=== PATIENT | male | born 1960 | race Hispanic/Latino ===

== ENCOUNTER 2016-03-10 15:13 | Inpatient (IN) | payer MEDICAID ==
[2016-03-10] MEDS ORDERED: ZOFRAN IV ONE (16:58)
[2016-03-10] MEDS ORDERED: MORPHINE IV ONE (16:58)
[2016-03-10] MEDS ORDERED: NITRO-BID 2% TP ONE (16:58)
--- NOTE | 2016-03-10 17:09 | Emergency Department Report ---
HPI - General Chief Complaint: Chest Pain Time Seen by Provider: 03/10/16 16:52 - HPI HPI: EMS triage/hallway The patient is a 55-year-old male presenting with a chief complaint of chest pain. The patient states his symptoms began last night with dizziness chest pain and diaphoresis. The patient states last night while walking he lost consciousness. This morning at 09:30 0 taken his dog for walks again began to feel dizziness palpitations and chest pain. Patient states it feels as though someone is standing on his chest. Patient currently gives his pain a score of 9 /10. The patient states he last received a cardiac catheterization last year and was told he had a small blockage but nothing that needed intervention Location: Chest Duration: Intermittent since last night Quality: Like someone standing on his chest Severity:9/10 Modifying factors: [see above] Context: [see above] Mode of transportation: EMS ED Past Medical Hx - Past Medical History Previous Medical History?: Yes Hx Hypertension: Yes Hx CVA: Yes (left sided weakness) Hx Heart Attack/AMI: Yes (x3 1999) Hx Congestive Heart Failure: Yes Hx Diabetes: Yes Hx Arthritis: Yes Hx Seizures: Yes Hx Asthma: Yes Additional medical history: triple bypass - Surgical History Past Surgical History?: Yes Hx Open Heart Surgery: Yes (triple byoass) Additional Surgical History: NECK FUSION with titanium; tonsilectomy. States chronic cataract right eye - Family History Family history: no significant - Social History Smoking Status: Former Smoker (none 18 years) Substance Use Type: None (denies illicit drug use) - Medications Home Medications: Home Medications Medication Instructions Recorded Confirmed Last Taken Type Insulin Glargine,Hum.rec.anlog 50 units SQ QHS 10/31/13 09/07/15 09/06/15 History [Lantus] Aspirin [Aspirin BABY CHEW TAB] 81 mg PO DAILY #30 tab.chew 07/07/15 09/07/15 Unknown Rx Cephalexin [Keflex] 500 mg PO Q6H #30 capsule 09/12/15 Unknown Rx Insulin Lispro Prot/Lispro 15 unit SQ TID #60 units 09/12/15 Unknown Rx [HumaLOG Mix 75/25 Vial] Metoprolol [Lopressor TAB] 25 mg PO BID #60 tablet 09/12/15 Unknown Rx Metoprolol [Lopressor TAB] 25 mg PO BID #60 tablet 09/12/15 Unknown Rx Moxifloxacin 0.5% [Vigamox] 1 drops OU Q8HR #1 bottle 09/12/15 Unknown Rx Pregabalin [Lyrica] 100 mg PO BID #30 capsule 09/12/15 Unknown Rx levETIRAcetam [Keppra TAB] 500 mg PO BID #60 tablet 09/12/15 Unknown Rx ED Review of Systems ROS: Stated complaint: CHEST PAIN Other details as noted in HPI Comment: All other systems reviewed and negative Constitutional: denies: chills, fever Eyes: denies: eye pain, eye discharge, vision change ENT: denies: ear pain, throat pain Respiratory: shortness of breath Cardiovascular: chest pain, palpitations Endocrine: no symptoms reported Gastrointestinal: denies: abdominal pain, nausea, diarrhea Genitourinary: denies: urgency, dysuria Musculoskeletal: denies: back pain, joint swelling, arthralgia Skin: denies: rash, lesions Neurological: other (syncope). denies: headache, weakness, paresthesias Psychiatric: denies: anxiety, depression Hematological/Lymphatic: denies: easy bleeding, easy bruising Physical Exam - Physical Exam Vital Signs: Vital Signs 03/10/16 16:13 Temperature 98.2 F Pulse Rate 80 Blood Pressure 190/91 O2 Sat by Pulse 96 Oximetry Physical Exam: GENERAL: The patient is well-developed well-nourished male lying on stretcher appearing to be in moderate discomfort. [] HEENT: Normocephalic. Atraumatic. Extraocular motions are intact. Patient has moist mucous membranes. Right sided ptosis (chronic per patient) NECK: Supple. Trachea midline CHEST/LUNGS: Clear to auscultation. There is no respiratory distress noted. HEART/CARDIOVASCULAR: Regular. There is no tachycardia. There is no gallop rub or murmur. ABDOMEN: Abdomen is soft, nontender. Patient has normal bowel sounds. There is no abdominal distention. SKIN: There is no rash. There is no edema. There is no diaphoresis. NEURO: The patient is awake, alert, and oriented. The patient is cooperative. The patient has normal speech MUSCULOSKELETAL: There is no evidence of acute injury. ED Course Vital Signs 03/10/16 16:13 Temperature 98.2 F Pulse Rate 80 Blood Pressure 190/91 O2 Sat by Pulse 96 Oximetry ED Medical Decision Making - Lab Data Result diagrams: 03/10/16 17:01 03/10/16 17:01 Laboratory Tests 03/10/16 03/10/16 03/10/16 17:01 17:01 17:01 WBC 7.2 RBC 5.36 H Hgb 16.4 H Hct 48.4 H MCV 90 MCH 31 MCHC 34 RDW 13.3 Plt Count 190 Lymph % (Auto) 26.3 [place] % (Auto) 6.1 Eos % (Auto) 2.3 Baso % (Auto) 0.7 Lymph # 1.9 [place] # 0.4 Eos # 0.2 Baso # 0.0 Seg Neutrophils % 64.6 Seg Neutrophils # 4.6 PT 12.2 INR 0.91 APTT 26.0 Sodium 134 L Potassium 4.4 Chloride 95.3 L Carbon Dioxide 27 Anion Gap 16 BUN 15 Creatinine 0.8 Estimated GFR > 60 BUN/Creatinine Ratio 18.75 Glucose 360 H Calcium 8.9 Troponin T < 0.010 - EKG Data -: EKG Interpreted by Me EKG shows normal: sinus rhythm Rate: normal - EKG Data When compared to previous EKG there are: previous EKG unavailable - Radiology Data Radiology results: image reviewed (chest x-ray) interpreted by me: Chest x-ray-no definite focal infiltrates, no pneumothorax. Evidence of previously healed left clavicle fracture - Differential Diagnosis ACS, GERD, pericarditis Critical care attestation.: If time is entered above; I have spent that time in minutes in the direct care of this critically ill patient, excluding procedure time. ED Disposition Clinical Impression: Chest pain Disposition: OP ADMITTED IP TO THIS HOSP Is pt being admited?: Yes Does the pt Need Aspirin: Yes Condition: Fair Instructions: Chest Pain (ED) Time of Disposition: 18:11 (hospitalist notified)
[2016-03-10] MEDS ORDERED: ASPIRIN PO ONE (17:13)
[2016-03-10 17:32] LABS: Anion Gap 16 mmol/L; BUN/Creatinine Ratio 18.75; Blood Urea Nitrogen 15 mg/dL (9-20); Calcium 8.9 mg/dL (8.4-10.2); Carbon Dioxide 27 mmol/L (22-30); Chloride 95.3 mmol/L (98-107); Glucose 360 mg/dL (75-100); Potassium 4.4 mmol/L (3.6-5.0); Sodium 134 mmol/L (137-145)
[2016-03-10 17:35] LABS: Basophils % (Auto) 0.7 % (0.0-1.8); Eosinophils % (Auto) 2.3 % (0.0-4.3); Hematocrit 48.4 % (35.5-45.6); Hemoglobin 16.4 gm/dl (11.8-15.2); Mean Corpuscular HGB Conc 34 % (32-34); Mean Corpuscular Hemoglobin 31 pg (28-32); Mean Corpuscular Volume 90 fl (84-94); Platelet Count 190 K/mm3 (140-440); Red Blood Count 5.36 M/mm3 (3.65-5.03); Red Cell Distribution Width 13.3 % (13.2-15.2); White Blood Count 7.2 K/mm3 (4.5-11.0)
[2016-03-10 17:45] LABS: INR 0.91 (0.87-1.13)
[2016-03-10] MEDS ORDERED: ZOFRAN IV PRN (18:18)
[2016-03-10] MEDS ORDERED: TYLENOL PO PRN (18:18)
[2016-03-10] MEDS ORDERED: DULCOLAX PR PRN (18:18)
[2016-03-10] MEDS ORDERED: MILK OF MAGNESIA PO PRN (18:18)
--- NOTE | 2016-03-10 18:21 | History and Physical Report ---
History of Present Illness Date of examination: 03/10/16 Date of admission: 03/10/13 Chief complaint: Chest pain with Near syncope History of present illness: Patient is a 55-year-old male with history of hypertension and CAD, seizures, CVA, diverticulitis mellitus while fortunately has been noncompliant with his medications although states that he takes his blood sugar he states at home runs around 300s of his blood pressure fluctuates. Presents to the hospital today with complaint of chest pain. He discuss this further with an intensity started the day prior to presentation continues to call recurrent bleed despite what activity he is doing. He denies any exertional components to this. He denies any pleuritic component to this. He states that this is similar to the pain that he's had in the past he has had multiple admissions for the same. He also stated that this morning the pain woke him up at 3 AM and was associated with a sensation of near syncope. He did present to the ER when his bladder the pain was reproducible on palpation of his chest. His blood sugar was noted to be elevated in the 300 range and his blood pressure was systolic 190. ROS Constitutional: No fever, fatigue or weight loss. Skin: No rash. Eyes: No recent vision problems or eye pain. ENT: No congestion, ear pain, or sore throat. Endocrine: No thyroid problems. Cardiovascular: Chest pain Respiratory: No cough, shortness of breath, congestion, or wheezing. Gastrointestinal: No abdominal pain, nausea, vomiting, or diarrhea. Genitourinary: No dysuria. Musculoskeletal: No joint swelling. Neurologic: Reports near syncope, No seizures. Hematologic: No unusual bruising or bleeding. Psychiatric: No psychiatric problems, hallucinations or depression. All other systems reviewed and otherwise negative. Past History Past Medical History: acute [place], CAD, diabetes, seizures Past Surgical History: CABG, Other (spinal surgery) Social history: full code. denies: smoking, alcohol abuse, prescription drug abuse, IV drug use Family history: diabetes, hypertension Medications and Allergies Allergies Allergy/AdvReac Type Severity Reaction Status Date / Time Tetracyclines AdvReac Mild Rash Verified 12/17/12 22:31 Home Medications Medication Instructions Recorded Confirmed Last Taken Type Insulin Glargine,Hum.rec.anlog 50 units SQ QHS 10/31/13 03/10/16 09/06/15 History [Lantus] Aspirin [Aspirin BABY CHEW TAB] 81 mg PO DAILY #30 tab.chew 07/07/15 03/10/16 Unknown Rx Insulin Lispro Prot/Lispro 15 unit SQ TID #60 units 09/12/15 03/10/16 Unknown Rx [HumaLOG Mix 75/25 Vial] Moxifloxacin 0.5% [Vigamox] 1 drops OU Q8HR #1 bottle 09/12/15 03/10/16 Unknown Rx Pregabalin [Lyrica] 100 mg PO BID #30 capsule 09/12/15 03/10/16 Unknown Rx levETIRAcetam [Keppra TAB] 500 mg PO BID #60 tablet 09/12/15 03/10/16 Unknown Rx Clopidogrel Bisulfate [Plavix] 75 mg PO DAILY 03/10/16 03/10/16 Unknown History Lisinopril [Zestril TAB] 20 mg PO DAILY 03/10/16 03/10/16 Unknown History Metoprolol [Lopressor TAB] 50 mg PO BID 03/10/16 03/10/16 Unknown History Exam - Physical Exam Narrative exam: VITAL SIGNS: Reviewed. GENERAL: The patient appeared well nourished and normally developed. Vital signs as documented. HEAD: No signs of head trauma. EYES: Pupils are equal. Extraocular motions intact. EARS: Hearing grossly intact. MOUTH: Oropharynx is normal. NECK: No adenopathy, no JVD. CHEST: Chest with clear breath sounds bilaterally. No wheezes, rales, or rhonchi. CARDIAC: Regular rate and rhythm. S1 and S2, without murmurs, gallops, or rubs. VASCULAR: No Edema. Peripheral pulses normal and equal in all extremities. ABDOMEN: Soft, without detectable tenderness. No sign of distention. No rebound or guarding, and no masses palpated. Bowel Sounds normal. MUSCULOSKELETAL: Good range of motion of all major joints. Extremities without clubbing, cyanosis or edema. NEUROLOGIC EXAM: Alert and oriented x 3. No focal sensory or strength deficits. Speech normal. Follows commands. PSYCHIATRIC: Mood normal. SKIN: Surgical scar across the back of the neck, well-healed, tattoo across the chest. - Constitutional Vitals: Temp Pulse Resp BP Pulse Ox 98.2 F 80 18 190/91 96 03/10/16 16:13 03/10/16 16:13 03/10/16 18:11 03/10/16 16:13 03/10/16 16:13 Results - Labs CBC & Chem 7: 03/11/16 07:15 03/11/16 07:15 Labs: Laboratory Last Values WBC 7.2 K/mm3 (4.5-11.0) 03/10/16 17:01 RBC 5.36 M/mm3 (3.65-5.03) H 03/10/16 17:01 Hgb 16.4 gm/dl (11.8-15.2) H 03/10/16 17:01 Hct 48.4 % (35.5-45.6) H 03/10/16 17:01 MCV 90 fl (84-94) 03/10/16 17:01 MCH 31 pg (28-32) 03/10/16 17:01 MCHC 34 % (32-34) 03/10/16 17:01 RDW 13.3 % (13.2-15.2) 03/10/16 17:01 Plt Count 190 K/mm3 (140-440) 03/10/16 17:01 Lymph % (Auto) 26.3 % (13.4-35.0) 03/10/16 17:01 [place] % (Auto) 6.1 % (0.0-7.3) 03/10/16 17:01 Eos % (Auto) 2.3 % (0.0-4.3) 03/10/16 17:01 Baso % (Auto) 0.7 % (0.0-1.8) 03/10/16 17:01 Lymph # 1.9 K/mm3 (1.2-5.4) 03/10/16 17:01 [place] # 0.4 K/mm3 (0.0-0.8) 03/10/16 17:01 Eos # 0.2 K/mm3 (0.0-0.4) 03/10/16 17:01 Baso # 0.0 K/mm3 (0.0-0.1) 03/10/16 17:01 Seg Neutrophils % 64.6 % (40.0-70.0) 03/10/16 17:01 Seg Neutrophils # 4.6 K/mm3 (1.8-7.7) 03/10/16 17:01 PT 12.2 Sec. (12.2-14.9) 03/10/16 17:01 INR 0.91 (0.87-1.13) 03/10/16 17:01 APTT 26.0 Sec. (24.2-36.6) 03/10/16 17:01 Sodium 134 mmol/L (137-145) L 03/10/16 17:01 Potassium 4.4 mmol/L (3.6-5.0) 03/10/16 17: Chloride 95.3 mmol/L (98-107) L 03/10/16 17:01 Carbon Dioxide 27 mmol/L (22-30) 03/10/16 17: Anion Gap 16 mmol/L 03/10/16 17: BUN 15 mg/dL (9-20) 03/10/16 17: Creatinine 0.8 mg/dL (0.8-1.5) 03/10/16 17:01 Estimated GFR > 60 ml/min 03/10/16 17: BUN/Creatinine Ratio 18.75 % 03/10/16 17: Glucose 360 mg/dL (75-100) H 03/10/16 17: Calcium 8.9 mg/dL (8.4-10.2) 03/10/16 17:01 Troponin T < 0.010 ng/mL (0.00-0.029) 03/10/16 17:01 - Imaging and Cardiology EKG: image reviewed (normal sinus rhythm) Chest x-ray: image reviewed (no acute pathology) Assessment and Plan Assessment and plan: Patient is a 55-year-old male with history of hypertension and CAD, seizures, CVA, diverticulitis mellitus while fortunately has been noncompliant with his medications although states that he takes his blood sugar he states at home runs around 300s of his blood pressure fluctuates. Presents to the hospital today with complaint of chest pain. He discuss this further with an intensity started the day prior to presentation continues to call recurrent bleed despite what activity he is doing. He denies any exertional components to this. He denies any pleuritic component to this. He states that this is similar to the pain that he's had in the past he has had multiple admissions for the same. He also stated that this morning the pain woke him up at 3 AM and was associated with a sensation of near syncope. He did present to the ER when his bladder the pain was reproducible on palpation of his chest. His blood sugar was noted to be elevated in the 300 range and his blood pressure was systolic 190. * Unstable angina * Near syncope * CAD * Hypertensive urgency * Diabetes mellitus- Uncontrolled * Seizure disorder * Stable chronic diastolic heart failure Plan * Will start patient on ACS protocol pathway * We'll obtain cardiology consultation patient highly noncompliant * We'll resume home medication and possible stress test in a.m. * Discussed extensively with the patient's family to be compliant with medication and also to keep it diary of his blood pressure on his blood sugar levels * Obtain CT of the brain rule out any other adverse pathology * check lipid profile * resume qhs insulin with 5 units of regular insulin tid * DVT/GI Prophylaxis Advance Directives: Yes Plan of care discussed with patient/family: Yes
[2016-03-10] MEDS ORDERED: PLAVIX PO ONE (18:25)
[2016-03-10] MEDS ORDERED: D50W (25GM) IV PRN ×2 (18:25→18:43)
[2016-03-10] MEDS ORDERED: NORMODYNE IV ONE (18:42)
[2016-03-10] MEDS ORDERED: LOPRESSOR PO SCH ×2 (19:00→22:00)
--- NOTE | 2016-03-10 19:09 | Cat Scan Report ---
FINAL REPORT PROCEDURE: CT head without contrast. TECHNIQUE: Computerized tomography of the head was performed without contrast material. HISTORY: Near syncope. COMPARISON: CT head 09/07/2015. FINDINGS: There is moderate cerebral atrophy consistent with age. There is an old lacunar infarct in the right putamen. There are patchy areas of diminished attenuation within the deep white matter of both cerebral hemispheres. This likely represents chronic microvascular ischemic change. There are no mass lesions. There is no intracranial hemorrhage. There are no signs of acute infarction. The calvarium appears intact. The mastoid air cells and visualized paranasal sinuses are well aerated. IMPRESSION: Moderate cerebral atrophy and chronic ischemic changes as described. No evidence of acute disease.
[2016-03-10 19:45] LABS: Creatine Kinase MB 4.5 ng/mL (0.0-4.0)
[2016-03-10 19:48] LABS: Creatine Kinase 109 units/L (55-170)
[2016-03-10] MEDS ORDERED: PLAVIX ONE (20:48)
[2016-03-10] MEDS ORDERED: FLEXERIL ONE (20:50)
[2016-03-10] MEDS: FLEXERIL PO SCH (21:02)
--- NOTE | 2016-03-10 21:13 | Admit Criteria Form ---
Admission Criteria Documentation: CHEST PAIN Clinical Indications for Admission to Inpatient Care (Place 'X' for any and all applicable criteria): Admission is indicated for chest pain and ANY ONE of the following(1)(2)(3)(4)(5 ): [ ]I. Angina with acute coronary syndrome (Also use Myocardial Infarction or Angina guideline) [ ]II. Hemodynamic instability [X ]III. Angina needing acute intervention as indicated by ALL of the following (11)(12): [ X]a) Unstable angina is present as indicated by angina that is ANY ONE of the following: [ ]i) New onset [X ]ii) Nocturnal [ ]iii) Prolonged at rest [ ]iv) Progressive [X ]b) Angina warrants acute intervention as indicated by ANY ONE of the following: [ ]i) Recurrent angina (e.g, not responding as previously to treatment) [ ]ii) Angina at rest or with low-level activities despite initial medical therapy [ ]iii) New or presumably new ST-segment depression on ECG [ ]iv) Signs or symptoms of heart failure (eg, dyspnea, pulmonary edema) [ ]v) New or worsening mitral regurgitation [ ]vi) Hemodynamic instability [ ]vii) Dangerous arrhythmia (eg, sustained ventricular tachycardia) [ ]viii) History of percutaneous coronary intervention within 6 months [ X]ix) History of coronary artery bypass graft surgery [ ]x) PASCUAL risk score of 2 or greater[A] [ X]xi) History of Diabetes(14) [ ]xii) High-risk cardiac ischemia findings on noninvasive testing (e.g, echocardiogram, treadmill testing, nuclear scan) [ ]xiii) Chronic renal insufficiency (ie, estimated GFR less than 60 mL/min/1.732m) [ ]xiv) Left ventricular ejection fraction less than 40% [ ]IV. Evidence of VT (eg, cardiac biomarkers positive, ST-segment elevation on ECG) also use Myocardial Infarction Criteria Form. [ ]V. Pulmonary edema [ ]. Respiratory distress [ ]VII. Chest pain indicative of serious diagnosis other than coronary artery disease (eg, aortic dissection) [ ]VIII. Contraindications and/or Inappropriate clinical situations for Observational Care in patients with Chest Pain, when ANY ONE of the following is required: [ ]a) Patient with risk factor for pulmonary embolism, acute coronary syndrome and myocardial infarction (18) [ ]b) Patient with Pulmonary embolism require an average LOS of 4.3 days, therefore emergency department observation management is inappropriate 18,23 [ ]c) Painful condition/s in the elderly, have the highest rate of recidivism after emergency department observation management (10.8%) 20,21,22 [ ]d) Elevated cardiac biomarker requires intensive and exhaustive care (19) [ ]IX. General contraindications and/or Inappropriate clinical situations for Observational Care in patients with Chest Pain, when ANY ONE of the following is required: [ ]a) Prediction of prolongation of LOS based on ANY ONE of the following may be considered as a contraindication for observational care 2, 3, 4, 5, 6, 7, 8, 9, 10, 11 [ ]i) Age > 65 yrs. [ ]ii) Patient arriving by ambulance [ ]iii) Patient with high acuity [ ]iv) Patient requiring vital sign monitoring [ ]v) Patient on IV medication [ ]b) Systolic blood pressures 180mmHg 3,12 [ ]c) Patient with altered mental status including delirium and other alteration of consciousness, (3) [ ]d) Patient whose discharge disposition will be to a [facility] home or rehabilitation home should not be managed in Emergency Department Observation Unit. CMS rule requires 3 days hospital stay before such placement. 3,13 [ ]e) Patient with failure to thrive due to broad array of etiologies 3,16,17 [ ]f) Inability to ambulate 3,14 Extended stay beyond goal length of stay may be needed for (1)(28): [ ]a) Specific condition diagnosed after evaluation (eg, pulmonary embolism, aortic dissection) [ ]b) Unstable angina [ ]c) Continued suspicion of acute coronary syndrome with inability to complete needed cardiac evaluation (eg, patient clinically unable to undergo stress testing) [ ]d) Myocardial infarction (Contents from ANGINA and CHEST PAIN clinical indications for admission to inpatient care have been integrated in this form) The original [employer] content created by [employer] has been revised. The portions of the content which have been revised are identified through the use of italic text or in bold, and [facility] has neither reviewed nor approved the modified material. All other unmodified content is copyright [employer]. Please see references footnoted in the original [facility] edition 2016 Admission Criteria Met: Yes
[2016-03-10 21:46] LABS: Creatine Kinase MB 4.6 ng/mL (0.0-4.0)
[2016-03-10 21:49] LABS: Creatine Kinase 104 units/L (55-170)
[2016-03-10] MEDS ORDERED: LEVEMIR SUB-Q SCH (22:00)
[2016-03-10] MEDS: NOVOLOG SUB-Q SCH (22:46)
[2016-03-10] MEDS: KEPPRA PO SCH (22:46)
[2016-03-10] MEDS: VIGAMOX OU SCH (22:47)
[2016-03-11 01:12] LABS: Creatine Kinase MB 4.1 ng/mL (0.0-4.0)
[2016-03-11 01:15] LABS: Creatine Kinase 115 units/L (55-170)
[2016-03-11] MEDS ORDERED: MORPHINE IV ONE (01:44)
[2016-03-11] MEDS: FLEXERIL PO SCH ×2 (03:00→18:00)
[2016-03-11] MEDS: VIGAMOX OU SCH ×2 (06:27→18:00)
[2016-03-11 07:42] LABS: Basophils % (Auto) 0.7 % (0.0-1.8); Eosinophils % (Auto) 2.7 % (0.0-4.3); Hematocrit 44.2 % (35.5-45.6); Hemoglobin 15.2 gm/dl (11.8-15.2); Mean Corpuscular HGB Conc 34 % (32-34); Mean Corpuscular Hemoglobin 31 pg (28-32); Mean Corpuscular Volume 90 fl (84-94); Platelet Count 176 K/mm3 (140-440); Red Blood Count 4.89 M/mm3 (3.65-5.03); Red Cell Distribution Width 13.1 % (13.2-15.2); White Blood Count 6.6 K/mm3 (4.5-11.0)
[2016-03-11 07:52] LABS: Anion Gap 13 mmol/L; BUN/Creatinine Ratio 21.25; Blood Urea Nitrogen 17 mg/dL (9-20); Calcium 8.6 mg/dL (8.4-10.2); Carbon Dioxide 28 mmol/L (22-30); Chloride 100.7 mmol/L (98-107); Cholesterol 191 mg/dL (50-199); Glucose 175 mg/dL (75-100); HDL Cholesterol 38 mg/dL (40-59); LDL Cholesterol,Direct 114 mg/dL (50-130); Potassium 3.8 mmol/L (3.6-5.0); Sodium 138 mmol/L (137-145); Triglycerides 199 mg/dL (2-149)
[2016-03-11] MEDS: NOVOLOG SUB-Q SCH ×2 (08:00→12:00)
--- NOTE | 2016-03-11 09:25 | XRay Report ---
Single view chest: Compared to . History: Chest pain. Findings: Heart size is upper limit of normal. Trachea is midline. No consolidation, pneumothorax or pleural effusion. Impression: No acute cardiopulmonary findings.
[2016-03-11] MEDS ORDERED: LEXISCAN IV ONE ×2 (09:49→09:52)
[2016-03-11] MEDS ORDERED: ASPIRIN PO SCH (10:00)
[2016-03-11] MEDS ORDERED: LYRICA PO SCH (10:00)
[2016-03-11] MEDS ORDERED: ZESTRIL PO SCH (10:00)
--- NOTE | 2016-03-11 10:58 | Discharge Summary ---
Providers - Providers Date of Admission: 03/10/16 18:19 Date of discharge: 03/11/16 Attending physician: EUNICE JAMES MD 03/10/16 18:27 Consult to Physician [CONS] Routine Consulting Provider: ALICE LÓPEZ Reason For Exam: chest pain Place consult to:: Dr. López Notified:: Tiffanie GABREIL Phone number called:: Was contact made?: Yes If yes, spoke with:: [facility]-answering service Time called:: 08:18 Primary care physician: [facility] Hospitalization Reason for admission: CHEST PAIN Condition: Fair Hospital course: Patient is a 55-year-old male with history of hypertension and CAD, seizures, CVA, diverticulitis mellitus while fortunately has been noncompliant with his medications although states that he takes his blood sugar he states at home runs around 300s of his blood pressure fluctuates. Presents to the hospital today with complaint of chest pain. He discuss this further with an intensity started the day prior to presentation continues to call recurrent bleed despite what activity he is doing. He denies any exertional components to this. He denies any pleuritic component to this. He states that this is similar to the pain that he's had in the past he has had multiple admissions for the same. He also stated that this morning the pain woke him up at 3 AM and was associated with a sensation of near syncope. He did present to the ER when his bladder the pain was reproducible on palpation of his chest. His blood sugar was noted to be elevated in the 300 range and his blood pressure was systolic 190. Patient on admission was started on Ricky home medication is pressure and blood glucose improved, although patient states that he takes this medication the fact that this improved per the hospital x-ray question if this is accurate. He did proceed for stress test in addition to consultation with recommendation from offshoring manager follows nuclear stress test patient stress test shows a small anterolateral ischemia similar to what he had 2014 which is consistent was patient small vessel disease in the distal LAD patient will be treated medically he has proximal 50% Imdur was added to patient's medication regimen. With again strong discussion about being compliant with his medicines. Again his chest pain is reproducible on palpation. Stable for discharge. He is to follow with cardiology and discharge. Discharge diagnosis * Atypical chest pain likely costochondritis versus reproducible * Near syncope * CAD status post CABG * Hypertensive urgency * Diabetes mellitus- Uncontrolled * Seizure disorder * Stable chronic diastolic heart failure Disposition: DISCHARGED TO HOME OR SELFCARE Time spent for discharge: 35 mins Core Measure Documentation - Palliative Care Palliative Care/ Comfort Measures: Not Applicable - Core Measures Any of the following diagnoses?: none - VTE Discharge Requirements Deep Vein Thrombosis/Pulmonary Embolism Present on Admission: No Exam - Physical Exam Narrative exam: VITAL SIGNS: Reviewed. GENERAL: The patient appeared well nourished and normally developed. Vital signs as documented. HEAD: No signs of head trauma. EYES: Pupils are equal. Extraocular motions intact. EARS: Hearing grossly intact. MOUTH: Oropharynx is normal. NECK: No adenopathy, no JVD. CHEST: Chest with clear breath sounds bilaterally. No wheezes, rales, or rhonchi. CARDIAC: Regular rate and rhythm. S1 and S2, without murmurs, gallops, or rubs. VASCULAR: No Edema. Peripheral pulses normal and equal in all extremities. ABDOMEN: Soft, without detectable tenderness. No sign of distention. No rebound or guarding, and no masses palpated. Bowel Sounds normal. MUSCULOSKELETAL: Reproducible chest wall pain. Good range of motion of all major joints. Extremities without clubbing, cyanosis or edema. NEUROLOGIC EXAM: Alert and oriented x 3. No focal sensory or strength deficits. Speech normal. Follows commands. PSYCHIATRIC: Mood normal. SKIN: Surgical scar across the back of the neck, well-healed, tattoo across the chest. - Constitutional Vitals: Temp Pulse Resp BP Pulse Ox 97.5 F L 69 20 165/87 92 03/11/16 08:20 03/11/16 08:20 03/11/16 08:20 03/11/16 08:20 03/11/16 08:20 Plan Activity: advance as tolerated, fall precautions Diet: low fat, low cholesterol, low salt, diabetic Special Instructions: record daily BP diary, record blood sugar diary, smoking cessation Follow up with: PRIMARY MD MERT [Primary Care Provider] - 7 Days ALICE LÓPEZ MD [Staff Physician] - 7 Days Prescriptions: AtorvaSTATin [Lipitor] 40 mg PO QHS #30 tablet ISOSORBIDE MONOnitrate [Imdur ER] 30 mg PO DAILY #30 tab.er.24h
--- NOTE | 2016-03-11 11:23 | Consultation ---
History of Present Illness Consult date: 03/11/16 Requesting physician: EUNICE JAMES Consult reason: chest pain History of present illness: This is a 55-year-old gentleman history of coronary disease bypass hypertension hyperlipidemia back issues who presents with one day of chest pain mid sternal non-radiation reproducible palpation out with deep inspiration patient denies any fall feels sharp in nature no associated nausea vomiting patient's cardiac enzymes have been negative patient has no melanoma or fever or chills or flulike symptoms patient denies any syncopal type Episodes Past History Past Medical History: acute AZ, CAD, diabetes, seizures Past Surgical History: CABG, Other (spinal surgery) Social history: full code. denies: smoking, alcohol abuse, prescription drug abuse, IV drug use Family history: diabetes, hypertension Medications and Allergies Allergies Allergy/AdvReac Type Severity Reaction Status Date / Time Tetracyclines AdvReac Mild Rash Verified 12/17/12 22:31 Home Medications Medication Instructions Recorded Confirmed Last Taken Type Insulin Glargine,Hum.rec.anlog 50 units SQ QHS 10/31/13 03/10/16 09/06/15 History [Lantus] Aspirin [Aspirin BABY CHEW TAB] 81 mg PO DAILY #30 tab.chew 07/07/15 03/10/16 Unknown Rx Insulin Lispro Prot/Lispro 15 unit SQ TID #60 units 09/12/15 03/10/16 Unknown Rx [HumaLOG Mix 75/25 Vial] Moxifloxacin 0.5% [Vigamox] 1 drops OU Q8HR #1 bottle 09/12/15 03/10/16 Unknown Rx Pregabalin [Lyrica] 100 mg PO BID #30 capsule 09/12/15 03/10/16 Unknown Rx levETIRAcetam [Keppra TAB] 500 mg PO BID #60 tablet 09/12/15 03/10/16 Unknown Rx Clopidogrel Bisulfate [Plavix] 75 mg PO DAILY 03/10/16 03/10/16 Unknown History Lisinopril [Zestril TAB] 20 mg PO DAILY 03/10/16 03/10/16 Unknown History Metoprolol [Lopressor TAB] 50 mg PO BID 03/10/16 03/10/16 Unknown History Active Meds: Active Medications Acetaminophen (Tylenol) 650 mg PO Q4H PRN PRN Reason: Pain MILD(1-3)/Fever >100.5/BARNETT Aspirin (Aspirin) 325 mg PO QDAY [facility] Bisacodyl (Dulcolax) 10 mg [place] QDAY PRN PRN Reason: Constipation unrelieved by MOM Cyclobenzaprine HCl (Flexeril) 5 mg PO Q8H [facility] Last Admin: 03/11/16 03:00 Dose: Not Given Dextrose (D50w (25gm)) 50 ml IV PRN PRN PRN Reason: Hypoglycemia Dextrose (D50w (25gm)) 50 ml IV PRN PRN PRN Reason: Hypoglycemia Insulin Aspart (Novolog) 0 units SUB-Q ACHS [facility] PRN Reason: Protocol Last Admin: 03/10/16 22:46 Dose: 2 units Insulin Detemir (Levemir) 50 units SUB-Q QHS [facility] Last Admin: 03/10/16 22:46 Dose: 50 units Insulin Human Regular (Novolin R) 5 units SUB-Q TIDDIAB [facility] Levetiracetam (Keppra) 500 mg PO BID [facility] Last Admin: 03/10/16 22:46 Dose: 500 mg Lisinopril (Zestril) 20 mg PO QDAY [facility] Magnesium Hydroxide (Milk Of Magnesia) 30 ml PO Q4H PRN PRN Reason: Constipation Metoprolol Tartrate (Lopressor) 50 mg PO ONCE [facility] Moxifloxacin HCl (Vigamox) 1 drops OU Q8HR [facility] Last Admin: 03/11/16 06:27 Dose: 1 drops Ondansetron HCl (Zofran) 4 mg IV Q8H PRN PRN Reason: N/V unrelieved by Reglan Pregabalin (Lyrica) 75 mg PO QDAY [facility] Review of Systems All systems: negative (as per the HPI 14 point systems negative) Physical Examination Vital Signs Temp Pulse BP Pulse Ox 98.2 F 80 190/91 96 03/10/16 16:13 03/10/16 16:13 03/10/16 16:13 03/10/16 16:13 General appearance: no acute distress HEENT: Positive: Other (right eye accident (normal) Neck: Positive: neck supple, trachea midline Cardiac: Positive: Reg Rate and Rhythm, S1/S2. Negative: Audible Murmur Lungs: Positive: clear to auscultation, Normal Breath Sounds Neuro: Positive: Grossly Intact Abdomen: Positive: Soft, Active Bowel Sounds. Negative: Tender, Distended Male genitourinary: Positive: deferred Musculoskeletal: No Pain, Normal Range of Motion Extremities: Present: normal. Absent: edema Results 03/11/16 07:15 03/11/16 07:15 Cardiac Enzymes 03/10/16 03/10/16 03/11/16 Range/Units 19:02 21:01 00:21 CK-MB (CK-2) 4.5 H 4.6 H 4.1 H (0.0-4.0) ng/mL Lipids 03/11/16 Range/Units 07:15 Triglycerides 199 H (2-149) mg/dL Cholesterol 191 (50-199) mg/dL HDL Cholesterol 38 L (40-59) mg/dL Cholesterol/HDL Ratio 5.02 % CBC 03/11/16 Range/Units 07:15 WBC 6.6 (4.5-11.0) K/mm3 RBC 4.89 (3.65-5.03) M/mm3 Hgb 15.2 (11.8-15.2) gm/dl Hct 44.2 (35.5-45.6) % Plt Count 176 (140-440) K/mm3 Lymph # 2.0 (1.2-5.4) K/mm3 Wright # 0.5 (0.0-0.8) K/mm3 Eos # 0.2 (0.0-0.4) K/mm3 Baso # 0.0 (0.0-0.1) K/mm3 Comprehensive Metabolic Panel 03/11/16 Range/Units 07:15 Sodium 138 (137-145) mmol/L Potassium 3.8 (3.6-5.0) mmol/L Chloride 100.7 (98-107) mmol/L Carbon Dioxide 28 (22-30) mmol/L BUN 17 (9-20) mg/dL Creatinine 0.8 (0.8-1.5) mg/dL Glucose 175 H (75-100) mg/dL Calcium 8.6 (8.4-10.2) mg/dL - Imaging and Cardiology Echo: report reviewed (2015 normal LV function moderate LVH and no significant regurgitation) Cardiac cath: report reviewed (2014 left main patent LAD ostial 100% ramus small caliber patent circumflex OM 100% RCA nondominant normal LV function SVG diagonal patent SVG OM patent distal portion of OM is a 4050% lesion BROWN to LAD is a small distal LAD is diffusely disease 1.5 mm vessel normal LV function) EKG interpretations - Telemetry EKG Rhythm: Sinus Rhythm (sinus rhythm with nonspecific ST-T's) Assessment and Plan Atypical chest pain [place] ruled out prop in view of reproducible chest pain as per costochondritis Diabetes Hypertension cabg Cholesterol Recommend following up nuclear stress test patient stress test shows a small anterolateral ischemia similar to what he had 2015 which is consistent was patient small vessel disease in the distal LAD patient will be treated medically he has proximal 50% patient home medications have not been restarted on home medications are aspirin 81mg , plavix 75 mg, lisinopril 20mg daily, lopressor 50mg bid, crestor 20mg and add low dose imdur 30mg and pt maybe discharged and for chest pain motrin 800mg bid for 5 days and followup with [facility].
[2016-03-11 13:33] VITALS: BP 189/97
[2016-03-11] MEDS: KEPPRA PO SCH (18:00)
--- NOTE | 2016-03-11 20:44 | Treadmill Report ---
NUCLEAR STRESS TEST READING PHYSICIAN: Jeet Lópze MD IMAGING PROTOCOL: The patient received 10 mCi of Technetium 99m Tetrofosmin for resting image and 28 mCi of Technetium 99m Tetrofosmin for stress imaging. The imaging for the whole procedure was completed 30-90 minutes following the initial injection of Technetium 99m tetrofosmin. The SPECT imaging in the 180 degree arc was performed in the right anterior oblique projection. Computerized reconstruction of the images was performed for analysis. IMAGING RESULTS: Normal cavity size from stress to rest. Distribution of radionuclide is normal in the anterior, inferior, septal, lateral, but there is a small mild decrease in the anterior lateral, apical lateral region seen on stress compared to rest, EF is 50% with no wall motion abnormality. The patient infused Lexiscan with no EKG changes. SUMMARY: 1. Negative Lexiscan EKG. 2. The patient has a small mild apical lateral defect that was similar to what he had last year, degree of ischemia is very mild, otherwise no significant ischemia noted in the anterior, inferior, septal, lateral regions with EF approximately 50%. JOB# [id number] ESTUARDO/ALVIN
[2016-03-11] MEDS ORDERED: LOPRESSOR PO SCH (22:00)
== END 2016-03-11 19:51 | disposition home or self-care (01) | DRG 206 ==
LOC: ED 15:13 → 4A 18:19
PROVIDERS: ADMIT Internal Medicine; ATTEND Internal Medicine
DX: M94.0 Chondrocostal junction syndrome [Tietze] (principal); I16.0 Hypertensive urgency; I50.32 Chronic diastolic (congestive) heart failure; J45.909 Unspecified asthma, uncomplicated; I11.0 Hypertensive heart disease with heart failure; M19.90 Unspecified osteoarthritis, unspecified site; I25.110 Atherosclerotic heart disease of native coronary artery with unstable angina pectoris; E11.65 Type 2 diabetes mellitus with hyperglycemia; G40.909 Epilepsy, unspecified, not intractable, without status epilepticus; E78.5 Hyperlipidemia, unspecified; E78.00 Pure hypercholesterolemia, unspecified; Z95.1 Presence of aortocoronary bypass graft; Z90.89 Acquired absence of other organs; Z98.41 Cataract extraction status, right eye; I69.354 Hemiplegia and hemiparesis following cerebral infarction affecting left non-dominant side; I25.2 Old myocardial infarction; Z87.891 Personal history of nicotine dependence; Z79.4 Long term (current) use of insulin; Z79.899 Other long term (current) drug therapy; Z91.14 Patient's other noncompliance with medication regimen; Z82.49 Family history of ischemic heart disease and other diseases of the circulatory system; Z83.3 Family history of diabetes mellitus; Z88.1 Allergy status to other antibiotic agents
CPT/HCPCS: 36415; 70450; 71010; 78452; 80048; 80061; 82550; 82553; 82962; 84484; 85025; 85610; 85730; 93005; 93010; 93017; 96374; A9502; J1818; J2270; J2405; J2785

== ENCOUNTER 2016-06-04 19:40 | Inpatient (IN) | payer MEDICAID ==
--- NOTE | 2016-06-04 19:55 | Emergency Department Report ---
HPI - General Time Seen by Provider: 06/04/16 19:44 - HPI HPI: This is a 56-year-old male presents to the emergency department via EMS from home with complaints of midsternal chest pain, shortness of breath, dizziness and some left-sided paresthesias that began about 30-40 minutes prior to presentation. The patient has a significant history for insulin-dependent diabetes, hypertension, hypercholesterolemia, CVA 4, triple bypass with coronary artery disease. He received 3 baby aspirin in route with EMS. The patient's previous strokes have left him with some left-sided numbness but said that it worsened today. He does not have a primary care doctor but he has [facility] cardiology. No recent travel or sick contacts at home. 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 He denies any slurred speech. ED Past Medical Hx - Past Medical History Hx Hypertension: Yes Hx CVA: Yes (left sided weakness) Hx Heart Attack/AMI: Yes (x3 1999) Hx Congestive Heart Failure: Yes Hx Diabetes: Yes Hx Arthritis: Yes Hx Seizures: Yes Hx Asthma: Yes Hx COPD: No Hx HIV: No Additional medical history: triple bypass - Surgical History Hx Open Heart Surgery: Yes (triple byoass) Additional Surgical History: NECK FUSION with titanium; tonsilectomy. States chronic cataract right eye - Social History Smoking Status: Former Smoker - Medications Home Medications: Home Medications Medication Instructions Recorded Confirmed Last Taken Type Insulin Glargine,Hum.rec.anlog 50 units SQ QHS 10/31/13 03/10/16 09/06/15 History [Lantus] Aspirin [Aspirin BABY CHEW TAB] 81 mg PO DAILY #30 tab.chew 07/07/15 03/10/16 Unknown Rx Insulin Lispro Prot/Lispro 15 unit SQ TID #60 units 09/12/15 03/10/16 Unknown Rx [HumaLOG Mix 75/25 Vial] Moxifloxacin 0.5% [Vigamox] 1 drops OU Q8HR #1 bottle 09/12/15 03/10/16 Unknown Rx Pregabalin [Lyrica] 100 mg PO BID #30 capsule 09/12/15 03/10/16 Unknown Rx levETIRAcetam [Keppra TAB] 500 mg PO BID #60 tablet 09/12/15 03/10/16 Unknown Rx Clopidogrel Bisulfate [Plavix] 75 mg PO DAILY 03/10/16 03/10/16 Unknown History Lisinopril [Zestril TAB] 20 mg PO DAILY 03/10/16 03/10/16 Unknown History Metoprolol [Lopressor TAB] 50 mg PO BID 03/10/16 03/10/16 Unknown History AtorvaSTATin [Lipitor] 40 mg PO QHS #30 tablet 03/11/16 Unknown Rx ISOSORBIDE MONOnitrate [Imdur ER] 30 mg PO DAILY #30 tab.er.24h 03/11/16 Unknown Rx ED Review of Systems ROS: Stated complaint: WEAKNESS Other details as noted in HPI Comment: All other systems reviewed and negative Constitutional: denies: chills, fever ENT: denies: ear pain, throat pain Respiratory: shortness of breath. denies: wheezing Cardiovascular: chest pain. denies: palpitations Gastrointestinal: denies: abdominal pain, nausea, diarrhea Genitourinary: denies: urgency, dysuria Musculoskeletal: denies: back pain, joint swelling, arthralgia Skin: denies: rash, lesions Neurological: headache, weakness, paresthesias Physical Exam - Physical Exam Physical Exam: GENERAL: The patient is well-developed well-nourished. HEENT: Normocephalic. Atraumatic. Extraocular motions are intact. Patient has moist mucous membranes. Pupils equal reactive to light bilaterally. NECK: Supple. Trachea is midline. CHEST/LUNGS: Clear to auscultation. There is no respiratory distress noted. Chest pain is not reproducible to palpation of chest wall. HEART/CARDIOVASCULAR: Regular. There is no tachycardia. There is no gallop rub or murmur. ABDOMEN: Abdomen is soft, nontender. Patient has normal bowel sounds. There is no abdominal distention. SKIN: Skin is warm and dry. NEURO: The patient is awake, alert, and oriented. The patient is cooperative. The patient has no motor neurologic deficits. There is some subjective decreased sensation to the left side of the face, arm and leg as well as complaint of paresthesias. The patient has normal speech. Muscle strength 5 out of 5 upper and lower semis bilaterally. No facial asymmetry. No pronator drift. No dysmetria. MUSCULOSKELETAL: There is no tenderness or deformity. There is no limitation range of motion. There is no evidence of acute injury. Pulses +2 over 4 bilaterally. Cap refill less than 2 seconds. ED Medical Decision Making - Lab Data Result diagrams: 06/04/16 19:53 06/04/16 19:53 - EKG Data -: EKG Interpreted by Me EKG shows normal: sinus rhythm, axis, intervals (increased [place] interval indicating first-degree AV block), QRS complexes, ST-T waves Rate: normal - EKG Data When compared to previous EKG there are: previous EKG unavailable Interpretation: other (first degree AV block) - Radiology Data Radiology results: report reviewed, image reviewed interpreted by me: Chest x-ray shows sternotomy wires. There are no significant pleural effusions. No obvious pneumonia. No pneumothorax. CT of the head without contrast does not show any acute bleed, shift, mass. There are some chronic changes seen. - Medical Decision Making 56-year-old male presents with some chest pain, shortness of breath, left-sided paresthesias that began about 30-40 minutes prior to presentation. As patient does not have any obvious acute weakness, facial asymmetry or any true numbness , the patient is very low on the stroke scale. He does not appear to be a TPA candidate for this reason. He does have history of previous CVA 4 so the unilateral paresthesias will still be taken seriously and will require further workup. Patient has acute chest pain or shortness of breath. First troponin negative. Negative d-dimer. EKG does not show any signs of ST elevation CT. Chest x-ray does not show any acute process. With the patient's complaint of some left-sided paresthesias and/or weakness, his chest pain and shortness of breath, and his significant history and comorbidities, he will be admitted to the hospital for further evaluation and treatment has been accepted for admission by the hospitalist, Dr. Rubio. - Differential Diagnosis CVA, CT, PE, TIA, paresthesias Critical Care Time: No Critical care attestation.: If time is entered above; I have spent that time in minutes in the direct care of this critically ill patient, excluding procedure time. ED Disposition Clinical Impression: Hyperglycemia, Paresthesias, Acute chest pain Chest pain Qualifiers: Chest pain type: unspecified Qualified Code(s): R07.9 - Chest pain, unspecified Dyspnea Qualifiers: Dyspnea type: shortness of breath Qualified Code(s): R06.02 - Shortness of breath Disposition: OP ADMITTED IP TO THIS HOSP Is pt being admited?: Yes Condition: Stable Instructions: Chest Pain (ED) Time of Disposition: 23:09
[2016-06-04 20:08] LABS: Basophils % (Auto) 0.4 % (0.0-1.8); Eosinophils % (Auto) 1.1 % (0.0-4.3); Hematocrit 47.6 % (35.5-45.6); Hemoglobin 16.3 gm/dl (11.8-15.2); Mean Corpuscular HGB Conc 34 % (32-34); Mean Corpuscular Hemoglobin 31 pg (28-32); Mean Corpuscular Volume 89 fl (84-94); Platelet Count 187 K/mm3 (140-440); Red Blood Count 5.32 M/mm3 (3.65-5.03); Red Cell Distribution Width 13.1 % (13.2-15.2); White Blood Count 9.9 K/mm3 (4.5-11.0)
[2016-06-04 20:17] LABS: INR 0.92 (0.87-1.13)
[2016-06-04 20:18] LABS: Partial Thromboplastin Time 28.1 Sec. (24.2-36.6)
[2016-06-04 20:28] LABS: Creatine Kinase MB 4.6 ng/mL (0.0-4.0)
[2016-06-04 20:30] LABS: Alanine Aminotransferase 21 units/L (7-56); Albumin 3.7 g/dL (3.9-5); Albumin/Globulin Ratio 1.1 %; Alkaline Phosphatase 88 units/L (35-129); Anion Gap 16 mmol/L; BUN/Creatinine Ratio 28.57; Bilirubin,Total 0.4 mg/dL (0.1-1.2); Blood Urea Nitrogen 20 mg/dL (9-20); Calcium 8.7 mg/dL (8.4-10.2); Carbon Dioxide 24 mmol/L (22-30); Chloride 93.7 mmol/L (98-107); Creatine Kinase 108 units/L (55-170); Glucose 387 mg/dL (75-100); Potassium 4.1 mmol/L (3.6-5.0); Sodium 130 mmol/L (137-145); Total Protein 7.1 g/dL (6.3-8.2)
--- NOTE | 2016-06-04 21:13 | Cat Scan Report ---
FINAL REPORT PROCEDURE: CT HEAD/BRAIN WO CON TECHNIQUE: Computerized tomography of the head was performed without contrast material. HISTORY: suspected stroke COMPARISON: No prior studies are available for comparison. FINDINGS: Skull and scalp: Normal. Paranasal sinuses: Normal. Ventricles and subarachnoid spaces: There is moderate central and cortical atrophy. There is no hydrocephalus.. Cerebrum: No evidence of hemorrhage, acute infarction or mass. There are old lacunar infarct defects in the left periventricular white matter and right basal ganglia. There is periventricular deep white matter ischemic gliosis. Cerebellum and brainstem: No evidence of hemorrhage, acute infarction or mass. Vasculature: Normal. Comments: None. IMPRESSION: There are chronic changes as described. No specific evidence of acute abnormality is seen.
[2016-06-04 21:41] LABS: Bilirubin,Urine NEG (Negative); Blood,Urine SM (Negative); Ketones,Urine NEG (Negative); Leukocyte Esterase,Urine NEG (Negative); Nitrite,Urine NEG (Negative); Urobilinogen,Urine < 2.0 mg/dL (<2.0)
[2016-06-04] MEDS ORDERED: MILK OF MAGNESIA PO PRN (22:48)
[2016-06-04] MEDS ORDERED: DULCOLAX PR PRN (22:48)
[2016-06-04] MEDS ORDERED: DUONEB 0.5 MG-3 MG/3 ML SOLN IH PRN (22:48)
[2016-06-04] MEDS ORDERED: ZOFRAN IV PRN (22:48)
[2016-06-04] MEDS ORDERED: TYLENOL PO PRN (22:48)
[2016-06-04] MEDS ORDERED: D50W (25GM) IV PRN (22:48)
[2016-06-04] MEDS: MORPHINE IV PRN (23:07)
[2016-06-04] MEDS ORDERED: LOPRESSOR IV ONE (23:09)
[2016-06-04] MEDS ORDERED: PROVENTIL IH PRN (23:12)
--- NOTE | 2016-06-04 23:36 | History and Physical Report ---
History of Present Illness Date of examination: 06/04/16 Chief complaint: Chest pain and headache for 4 hours prior to his presentation to the emergency department Brief syncopal episode lasting a "couple" of seconds History of present illness: This is a 56-year-old male presents to the emergency department via EMS from home with complaints of midsternal chest pain, shortness of breath, dizziness and left sided numbness. The patient has a significant history for insulin-dependent diabetes, hypertension, hypercholesterolemia, CVA 4, triple bypass with coronary artery disease. He received 3 baby aspirin in route with EMS. The patient's previous strokes have left him with some left-sided numbness but said that it worsened today. he states he passed out briefly lasting a couple of seconds. He was sitting when this happened. He does not have a primary care doctor but he has [facility] cardiology. No recent travel or sick contacts at home. He denies any vision change but does have right eye blindness 2/2 corneal opacity. He denies any slurred speech. CP is non exertional. The first episode of chest pain lasted for 3-4 minutes. Recurred again and it lasted about 7-8 minutes. He describes it as pressure in the midsternal area Past History Past Medical History: CAD, diabetes, hypertension, hyperlipidemia, stroke, other (neuropathy) Past Surgical History: CABG, Other (C-spine fusion) Social history: no significant social history Family history: no significant family history Medications and Allergies Allergies Allergy/AdvReac Type Severity Reaction Status Date / Time Tetracyclines AdvReac Mild Rash Verified 12/17/12 22:31 Home Medications Medication Instructions Recorded Confirmed Last Taken Type Insulin Glargine,Hum.rec.anlog 50 units SQ QHS 10/31/13 03/10/16 09/06/15 History [Lantus] Aspirin [Aspirin BABY CHEW TAB] 81 mg PO DAILY #30 tab.chew 07/07/15 03/10/16 Unknown Rx Insulin Lispro Prot/Lispro 15 unit SQ TID #60 units 09/12/15 03/10/16 Unknown Rx [HumaLOG Mix 75/25 Vial] Moxifloxacin 0.5% [Vigamox] 1 drops OU Q8HR #1 bottle 09/12/15 03/10/16 Unknown Rx Pregabalin [Lyrica] 100 mg PO BID #30 capsule 09/12/15 03/10/16 Unknown Rx levETIRAcetam [Keppra TAB] 500 mg PO BID #60 tablet 09/12/15 03/10/16 Unknown Rx Clopidogrel Bisulfate [Plavix] 75 mg PO DAILY 03/10/16 03/10/16 Unknown History Lisinopril [Zestril TAB] 20 mg PO DAILY 03/10/16 03/10/16 Unknown History Metoprolol [Lopressor TAB] 50 mg PO BID 03/10/16 03/10/16 Unknown History AtorvaSTATin [Lipitor] 40 mg PO QHS #30 tablet 03/11/16 Unknown Rx ISOSORBIDE MONOnitrate [Imdur ER] 30 mg PO DAILY #30 tab.er.24h 03/11/16 Unknown Rx Active Meds: Active Medications Acetaminophen (Tylenol) 650 mg PO Q4H PRN PRN Reason: Pain MILD(1-3)/Fever >100.5/BARNETT Albuterol (Proventil) 2.5 mg IH Q8HRT PRN PRN Reason: Shortness Of Breath Aspirin (Baby Aspirin) 81 mg PO DAILY [facility] Atorvastatin Calcium (Lipitor) 40 mg PO QHS [facility] Bisacodyl (Dulcolax) 10 mg [place] QDAY PRN PRN Reason: Constipation unrelieved by MOM Clopidogrel Bisulfate (Plavix) 75 mg PO DAILY [facility] Dextrose (D50w (25gm)) 50 ml IV PRN PRN PRN Reason: Hypoglycemia Heparin Sodium (Porcine) (Heparin) 5,000 unit SUB-Q Q8HR [facility] Insulin Aspart (Novolog) 0 units SUB-Q ACHS [facility] PRN Reason: Protocol Insulin Detemir (Levemir) 45 units SUB-Q QHS [facility] Isosorbide Mononitrate (Imdur) 30 mg PO DAILY [facility] Levetiracetam (Keppra) 500 mg PO BID [facility] Lisinopril (Zestril) 20 mg PO DAILY [facility] Magnesium Hydroxide (Milk Of Magnesia) 30 ml PO Q4H PRN PRN Reason: Constipation Metoprolol Tartrate (Lopressor) 50 mg PO BID [facility] Morphine Sulfate (Morphine) 2 mg IV Q4H PRN PRN Reason: Pain, Moderate (4-6) Last Admin: 06/04/16 23:07 Dose: 2 mg Moxifloxacin HCl (Vigamox) 1 drops OU Q8HR [facility] Ondansetron HCl (Zofran) 4 mg IV Q8H PRN PRN Reason: N/V unrelieved by Ryan Mishra Admin: 06/04/16 23:08 Dose: 4 mg Pregabalin (Lyrica) 75 mg PO BID [facility] Pregabalin (Lyrica) 25 mg PO BID [facility] Review of Systems Constitutional: no weight loss, no fever, no chills, no fatigue Ears, nose, mouth and throat: headache, vertigo, no ear pain, no ear discharge, no sore throat Cardiovascular: chest pain (as stated above in the history of present illness), syncope, lightheadedness, shortness of breath, high blood pressure, no orthopnea , no palpitations, no dyspnea on exertion, no paroxysmal nocturnal dyspnea Respiratory: no cough, no hemoptysis, no shortness of breath Gastrointestinal: no abdominal pain, no nausea, no vomiting, no diarrhea, no constipation, no melena Genitourinary Male: no dysuria, no hematuria, no flank pain, no urinary frequency, no incontinence Rectal: no pain Musculoskeletal: arm numbness/tingling (left-sided arm and leg numbness), leg numbness/tingling, no neck pain, no low back pain, no muscle weakness Integumentary: no rash Neurological: syncope, vertigo, no head injury, no seizures Psychiatric: no anxiety, no depression Endocrine: no polyphagia, no excessive thirst, no polydipsia Exam - Constitutional Vitals: Temp Pulse Resp BP Pulse Ox 98.7 F 88 21 188/101 98 06/04/16 20:12 06/04/16 20:12 06/04/16 20:04 06/04/16 20:12 06/04/16 20:04 General appearance: Present: no acute distress - EENT Eyes: Present: PERRL (left pupil is round and reacting and has dense corneal opacity on the right side), EOM intact ENT: hearing intact, clear oral mucosa, no thrush - Neck Neck: Present: supple, normal ROM. Absent: masses or JVD - Respiratory Respiratory effort: normal Respiratory: bilateral: CTA - Cardiovascular Rhythm: regular Heart Sounds: Present: S1 & S2 - Extremities Extremities: No edema - Abdominal General gastrointestinal: Present: soft, non-tender, non-distended. Absent: hepatomegaly, splenomegaly - Rectal Rectal Exam: deferred - Integumentary Integumentary: Present: clear - Musculoskeletal Musculoskeletal: strength equal bilaterally, other (moderate tenderness in the lower part of the sternum) - Psychiatric Psychiatric: appropriate mood/affect - Neurologic Neurologic: no focal deficits, moves all extremities Results - Labs CBC & Chem 7: 06/04/16 19:53 06/04/16 19:53 Labs: Abnormal lab results 06/04/16 06/04/16 Range/Units 19:53 19:53 RBC 5.32 H (3.65-5.03) M/mm3 Hgb 16.3 H (11.8-15.2) gm/dl Hct 47.6 H (35.5-45.6) % RDW 13.1 L (13.2-15.2) % Lymph % (Auto) 10.8 L (13.4-35.0) % Lymph # 1.1 L (1.2-5.4) K/mm3 Seg Neutrophils % 84.0 H (40.0-70.0) % Seg Neutrophils # 8.3 H (1.8-7.7) K/mm3 Sodium 130 L (137-145) mmol/L Chloride 93.7 L (98-107) mmol/L Creatinine 0.7 L (0.8-1.5) mg/dL Glucose 387 H (75-100) mg/dL CK-MB (CK-2) 4.6 H (0.0-4.0) ng/mL CK-MB (CK-2) Rel Index 4.2 H (0-4) Albumin 3.7 L (3.9-5) g/dL Assessment and Plan - Patient Problems (1) Acute chest pain Current Visit: Yes Status: Acute Plan to address problem: Patient has history of coronary artery disease and had CABG in 2015. Since then he apparently did not have any further follow-up First set of troponin was in the normal range EKG showed a heart rate of 86 bpm sinus rhythm with first-degree AV block We will do serial troponin levels Will request cardiology consult for further evaluation of his chest pain (2) HTN (hypertension) Current Visit: Yes Status: Acute Qualifiers: Hypertension type: H Plan to address problem: Continue home medications (3) Hyponatremia Current Visit: No Status: Acute Plan to address problem: Monitor electrolytes Most likely this is secondary to hypoglycemia (4) Paresthesia Current Visit: No Status: Chronic Plan to address problem: History suggestive of patient most likely having diabetic peripheral neuropathy Continue pre-gabalin (5) CAD (coronary artery disease) Current Visit: No Status: Chronic Qualifiers: Coronary Disease-Associated Artery/Lesion type: C [place] vs. transplanted heart: N Associated angina: A Plan to address problem: Await cardiology consult Continue beta syed (6) Hyperlipidemia Current Visit: No Status: Chronic Qualifiers: Hyperlipidemia type: H Plan to address problem: Continue statin (7) Type 2 diabetes mellitus Current Visit: No Status: Chronic Qualifiers: Diabetes mellitus complication status: without complication Diabetes mellitus complication detail: D Diabetic retinopathy severity: D Proliferative retinopathy type: P Diabetes mellitus macular edema: D Diabetes mellitus prison insulin use: D Laterality: L Chronic kidney disease stage: C Plan to address problem: Continue sliding-scale coverage and basal insulin and monitor blood sugars
--- NOTE | 2016-06-05 02:29 | Admit Criteria Form ---
Admission Criteria Documentation: CHEST PAIN Clinical Indications for Admission to Inpatient Care (Place 'X' for any and all applicable criteria): Admission is indicated for chest pain and ANY ONE of the following(1)(2)(3)(4)(5 ): [ ]I. Angina with acute coronary syndrome (Also use Myocardial Infarction or Angina guideline) [ ]II. Hemodynamic instability [ ]III. Angina needing acute intervention as indicated by ALL of the following( 11)(12): [ ]a) Unstable angina is present as indicated by angina that is ANY ONE of the following: [ ]i) New onset [ ]ii) Nocturnal [ ]iii) Prolonged at rest [ ]iv) Progressive [ ]b) Angina warrants acute intervention as indicated by ANY ONE of the following: [ ]i) Recurrent angina (e.g, not responding as previously to treatment) [ ]ii) Angina at rest or with low-level activities despite initial medical therapy [ ]iii) New or presumably new ST-segment depression on ECG [ ]iv) Signs or symptoms of heart failure (eg, dyspnea, pulmonary edema) [ ]v) New or worsening mitral regurgitation [ ]vi) Hemodynamic instability [ ]vii) Dangerous arrhythmia (eg, sustained ventricular tachycardia) [ ]viii) History of percutaneous coronary intervention within 6 months [ ]ix) History of coronary artery bypass graft surgery [ ]x) PASCUAL risk score of 2 or greater[A] [ ]xi) History of Diabetes(14) [ ]xii) High-risk cardiac ischemia findings on noninvasive testing (e.g, echocardiogram, treadmill testing, nuclear scan) [ ]xiii) Chronic renal insufficiency (ie, estimated GFR less than 60 mL/min/1.732m) [ ]xiv) Left ventricular ejection fraction less than 40% [ ]IV. Evidence of OK (eg, cardiac biomarkers positive, ST-segment elevation on ECG) also use Myocardial Infarction Criteria Form. [ ]V. Pulmonary edema [ ]. Respiratory distress [ ]VII. Chest pain indicative of serious diagnosis other than coronary artery disease (eg, aortic dissection) [ ]VIII. Contraindications and/or Inappropriate clinical situations for Observational Care in patients with Chest Pain, when ANY ONE of the following is required: [ ]a) Patient with risk factor for pulmonary embolism, acute coronary syndrome and myocardial infarction (18) [ ]b) Patient with Pulmonary embolism require an average LOS of 4.3 days, therefore emergency department observation management is inappropriate 18,23 [ ]c) Painful condition/s in the elderly, have the highest rate of recidivism after emergency department observation management (10.8%) 20,21,22 [ ]d) Elevated cardiac biomarker requires intensive and exhaustive care (19) [X ]IX. General contraindications and/or Inappropriate clinical situations for Observational Care in patients with Chest Pain, when ANY ONE of the following is required: [ ]a) Prediction of prolongation of LOS based on ANY ONE of the following may be considered as a contraindication for observational care 2, 3, 4, 5, 6, 7, 8, 9, 10, 11 [ ]i) Age > 65 yrs. [ ]ii) Patient arriving by ambulance [ ]iii) Patient with high acuity [ ]iv) Patient requiring vital sign monitoring [ ]v) Patient on IV medication [ X]b) Systolic blood pressures 180mmHg 3,12 [ ]c) Patient with altered mental status including delirium and other alteration of consciousness, (3) [ ]d) Patient whose discharge disposition will be to a halfway home or rehabilitation home should not be managed in Emergency Department Observation Unit. CMS rule requires 3 days hospital stay before such placement. 3,13 [ ]e) Patient with failure to thrive due to broad array of etiologies 3,16,17 [ ]f) Inability to ambulate 3,14 Extended stay beyond goal length of stay may be needed for (1)(28): [ ]a) Specific condition diagnosed after evaluation (eg, pulmonary embolism, aortic dissection) [ ]b) Unstable angina [ ]c) Continued suspicion of acute coronary syndrome with inability to complete needed cardiac evaluation (eg, patient clinically unable to undergo stress testing) [ ]d) Myocardial infarction (Contents from ANGINA and CHEST PAIN clinical indications for admission to inpatient care have been integrated in this form) The original [employer] [facility] [employer] content created by [employer] has been revised. The portions of the content which have been revised are identified through the use of italic text or in bold, and [employer] [facility] [employer] has neither reviewed nor approved the modified material. All other unmodified content is copyright [employer] [facility] [employer]. Please see references footnoted in the original [employer] [facility] [employer] edition 2016 Admission Criteria Met: Yes
[2016-06-05] MEDS: HEPARIN SUB-Q SCH ×3 (06:14→21:44)
[2016-06-05] MEDS: MORPHINE IV PRN (06:15)
[2016-06-05] MEDS: VIGAMOX OU SCH ×3 (06:16→21:46)
[2016-06-05 06:31] LABS: Anion Gap 16 mmol/L; BUN/Creatinine Ratio 31.66; Blood Urea Nitrogen 19 mg/dL (9-20); Calcium 8.3 mg/dL (8.4-10.2); Carbon Dioxide 25 mmol/L (22-30); Chloride 99.9 mmol/L (98-107); Glucose 202 mg/dL (75-100); Potassium 3.9 mmol/L (3.6-5.0); Sodium 137 mmol/L (137-145)
[2016-06-05] MEDS: NOVOLOG SUB-Q SCH ×4 (08:35→23:20)
--- NOTE | 2016-06-05 09:58 | XRay Report ---
AP CHEST: HISTORY: chest pain CABG changes. Heart size and pulmonary vascularity are within normal limits. The lungs are clear. Chronic left clavicle deformity is noted. No significant change since 03/10/16. IMPRESSION: No acute cardiopulmonary process.
[2016-06-05] MEDS: ZESTRIL PO SCH (10:32)
[2016-06-05] MEDS: IMDUR PO SCH (10:33)
[2016-06-05] MEDS: LOPRESSOR PO SCH ×2 (10:33→21:45)
[2016-06-05] MEDS: BABY ASPIRIN PO SCH (10:34)
[2016-06-05] MEDS: PLAVIX PO SCH (10:34)
[2016-06-05] MEDS: KEPPRA PO SCH ×2 (10:34→21:44)
[2016-06-05] MEDS: LYRICA PO SCH ×4 (10:34→21:45)
--- NOTE | 2016-06-05 11:19 | Consultation ---
History of Present Illness Consult date: 06/05/16 Requesting physician: BHUMI GONZALEZ Consult reason: chest pain History of present illness: This is a 56-year-old gentleman history of hypertension, diabetes, hyperlipidemia, bypass with stroke [address] waddell in our office who has had multiple admissions for chest pain patient had a stress test in February 2016 which revealed some mild ischemia apical region. Patient states that he had chest pain and had syncope and collapse on loss of consciousness with no seizure type activity or loss of urine patient states for a few seconds. Also had chest pain as midsternal nonradiating. Patient states week ago did not have any chest pain with exertion. Patient has reproducible symptoms with palpation. Patient has not exertional type symptoms. Patient denies any coughing or fever or chills. Patient states compliance with medication is a nonsmoker. Past History Past Medical History: CAD, diabetes, hypertension, hyperlipidemia, stroke, other (neuropathy) Past Surgical History: CABG (three vessel bypass), Other (C-spine fusion) Social history: no significant social history Family history: no significant family history Medications and Allergies Allergies Allergy/AdvReac Type Severity Reaction Status Date / Time Tetracyclines AdvReac Mild Rash Verified 12/17/12 22:31 Home Medications Medication Instructions Recorded Confirmed Last Taken Type Insulin Glargine,Hum.rec.anlog 50 units SQ QHS 10/31/13 03/10/16 09/06/15 History [Lantus] Aspirin [Aspirin BABY CHEW TAB] 81 mg PO DAILY #30 tab.chew 07/07/15 03/10/16 Unknown Rx Insulin Lispro Prot/Lispro 15 unit SQ TID #60 units 09/12/15 03/10/16 Unknown Rx [HumaLOG Mix 75/25 Vial] Moxifloxacin 0.5% [Vigamox] 1 drops OU Q8HR #1 bottle 09/12/15 03/10/16 Unknown Rx Pregabalin [Lyrica] 100 mg PO BID #30 capsule 09/12/15 03/10/16 Unknown Rx levETIRAcetam [Keppra TAB] 500 mg PO BID #60 tablet 09/12/15 03/10/16 Unknown Rx Clopidogrel Bisulfate [Plavix] 75 mg PO DAILY 03/10/16 03/10/16 Unknown History Lisinopril [Zestril TAB] 20 mg PO DAILY 03/10/16 03/10/16 Unknown History Metoprolol [Lopressor TAB] 50 mg PO BID 03/10/16 03/10/16 Unknown History AtorvaSTATin [Lipitor] 40 mg PO QHS #30 tablet 03/11/16 Unknown Rx ISOSORBIDE MONOnitrate [Imdur ER] 30 mg PO DAILY #30 tab.er.24h 03/11/16 Unknown Rx Active Meds: Active Medications Acetaminophen (Tylenol) 650 mg PO Q4H PRN PRN Reason: Pain MILD(1-3)/Fever >100.5/BARNETT Albuterol (Proventil) 2.5 mg IH Q8HRT PRN PRN Reason: Shortness Of Breath Aspirin (Baby Aspirin) 81 mg PO DAILY [facility] Last Admin: 06/05/16 10:34 Dose: 81 mg Atorvastatin Calcium (Lipitor) 40 mg PO QHS [facility] Bisacodyl (Dulcolax) 10 mg MS QDAY PRN PRN Reason: Constipation unrelieved by MOM Clopidogrel Bisulfate (Plavix) 75 mg PO DAILY [facility] Last Admin: 06/05/16 10:34 Dose: 75 mg Dextrose (D50w (25gm)) 50 ml IV PRN PRN PRN Reason: Hypoglycemia Heparin Sodium (Porcine) (Heparin) 5,000 unit SUB-Q Q8HR [facility] Last Admin: 06/05/16 06:14 Dose: 5,000 unit Sodium Chloride (Nacl 0.9% 500 Ml) 500 mls @ 50 mls/hr IV DIRECT [facility] Stop: 06/05/16 21:59 Insulin Aspart (Novolog) 0 units SUB-Q ACHS [facility] PRN Reason: Protocol Last Admin: 06/05/16 08:35 Dose: 3 units Insulin Detemir (Levemir) 45 units SUB-Q QHS [facility] Isosorbide Mononitrate (Imdur) 30 mg PO DAILY [facility] Last Admin: 06/05/16 10:33 Dose: 30 mg Levetiracetam (Keppra) 500 mg PO BID [facility] Last Admin: 06/05/16 10:34 Dose: 500 mg Lisinopril (Zestril) 20 mg PO DAILY [facility] Last Admin: 06/05/16 10:32 Dose: 20 mg Magnesium Hydroxide (Milk Of Magnesia) 30 ml PO Q4H PRN PRN Reason: Constipation Metoprolol Tartrate (Lopressor) 50 mg PO BID [facility] Last Admin: 06/05/16 10:33 Dose: 50 mg Morphine Sulfate (Morphine) 2 mg IV Q4H PRN PRN Reason: Pain, Moderate (4-6) Last Admin: 06/05/16 06:15 Dose: 2 mg Moxifloxacin HCl (Vigamox) 1 drops OU Q8HR [facility] Last Admin: 06/05/16 06:16 Dose: 1 drops Ondansetron HCl (Zofran) 4 mg IV Q8H PRN PRN Reason: N/V unrelieved by Reglan Last Admin: 06/04/16 23:08 Dose: 4 mg Pregabalin (Lyrica) 75 mg PO BID [facility] Last Admin: 06/05/16 10:34 Dose: 75 mg Pregabalin (Lyrica) 25 mg PO BID [facility] Last Admin: 06/05/16 10:34 Dose: 25 mg Review of Systems All systems: negative (as per hpi) Physical Examination Vital Signs Pulse Resp 88 19 06/04/16 19:46 06/04/16 19:46 General appearance: no acute distress HEENT: Positive: EOMI (right eye blindness) Neck: Positive: neck supple Cardiac: Positive: Reg Rate and Rhythm Lungs: Positive: clear to auscultation Neuro: Positive: Other (left side weakness) Abdomen: Positive: Soft Male genitourinary: Positive: deferred Skin: Positive: Clear Extremities: Present: normal. Absent: edema Results 06/04/16 19:53 06/05/16 05:44 Comprehensive Metabolic Panel 06/05/16 Range/Units 05:44 Sodium 137 D (137-145) mmol/L Potassium 3.9 (3.6-5.0) mmol/L Chloride 99.9 (98-107) mmol/L Carbon Dioxide 25 (22-30) mmol/L BUN 19 (9-20) mg/dL Creatinine 0.6 L (0.8-1.5) mg/dL Glucose 202 H (75-100) mg/dL Calcium 8.3 L (8.4-10.2) mg/dL - Imaging and Cardiology Stress echo: report reviewed (02/2016 mild apical ischemia) Echo: report reviewed (normally function mild MR mild TR 2016) Cardiac cath: report reviewed (09/2014 patent BROWN to LAD patent SVG OM patent SVG PDA small vessel disease in LAD) EKG interpretations - EKG Sinus rhythms and dysrhythmias: sinus rhythm (normal sinus rhythm with LVH with strain pattern) Assessment and Plan Recurrent chest pain History of bypass Hypertension Hyperlipidemia Diabetes insulin-dependent CVA Recommend in view of recurrent chest pain with mildly abnormal stress test but admissions cardiac catheterization for definitive diagnosis explain the risk and benefits to the patient
--- NOTE | 2016-06-05 11:59 | Progress Note ---
Assessment and Plan Assessment and plan: Syncope Chest pain CAD status post CABG Diabetes mellitus type 2 on insulin Hyperlipidemia - First set of cardiac enzymes were negative, patient has a stress test done in February 2016 and was normal, cardiology consult was placed, resume home medications - Orthostatic vitals checked and no significant difference - The syncopal episode could vasovagal, CT head was negative - Patient is on a sliding insulin and 45 units daily at bedtime - Patient is on statin DVT prophylaxis - Heparin Disposition - Continue present care History Interval history: Patient was seen and examined this morning. Patient has some chest heaviness, still feels dizzy when he tried to stand up. Hospitalist Physical - Physical exam Narrative exam: Not in cardiopulmonary distress. The patient appeared well nourished and normally developed. Vital signs as documented. Head exam is unremarkable. No scleral icterus . Neck is without jugular venous distension, thyromegaly, or carotid bruits. Lungs are clear to auscultation. Cardiac exam reveals regular rate and Rhythm. First and second heart sounds normal. No murmurs, rubs or gallops. Abdominal exam reveals normal bowel sounds, no masses, no organomegaly and no aortic enlargement. Extremities are nonedematous and both femoral and pedal pulses are normal. [employer]: Alert and oriented 3. No focal weakness. - Constitutional Vitals: Temp Pulse Resp BP Pulse Ox 98.7 F 69 18 143/81 97 06/05/16 10:29 06/05/16 10:33 06/05/16 10:29 06/05/16 10:33 06/05/16 10:29 General appearance: Present: no acute distress Results - Labs CBC & Chem 7: 06/04/16 19:53 06/05/16 05:44 Labs: Laboratory Last Values WBC 9.9 K/mm3 (4.5-11.0) 06/04/16 19:53 RBC 5.32 M/mm3 (3.65-5.03) H 06/04/16 19:53 Hgb 16.3 gm/dl (11.8-15.2) H 06/04/16 19:53 Hct 47.6 % (35.5-45.6) H 06/04/16 19:53 MCV 89 fl (84-94) 06/04/16 19:53 MCH 31 pg (28-32) 06/04/16 19:53 MCHC 34 % (32-34) 06/04/16 19:53 RDW 13.1 % (13.2-15.2) L 06/04/16 19:53 Plt Count 187 K/mm3 (140-440) 06/04/16 19:53 Lymph % (Auto) 10.8 % (13.4-35.0) L 06/04/16 19:53 [place] % (Auto) 3.7 % (0.0-7.3) 06/04/16 19:53 Eos % (Auto) 1.1 % (0.0-4.3) 06/04/16 19:53 Baso % (Auto) 0.4 % (0.0-1.8) 06/04/16 19:53 Lymph # 1.1 K/mm3 (1.2-5.4) L 06/04/16 19:53 [place] # 0.4 K/mm3 (0.0-0.8) 06/04/16 19:53 Eos # 0.1 K/mm3 (0.0-0.4) 06/04/16 19:53 Baso # 0.0 K/mm3 (0.0-0.1) 06/04/16 19:53 Seg Neutrophils % 84.0 % (40.0-70.0) H 06/04/16 19:53 Seg Neutrophils # 8.3 K/mm3 (1.8-7.7) H 06/04/16 19:53 PT 12.3 Sec. (12.2-14.9) 06/04/16 19:53 INR 0.92 (0.87-1.13) 06/04/16 19:53 APTT 28.1 Sec. (24.2-36.6) 06/04/16 19:53 Thrombin Time 16.2 Sec. (15.1-19.6) 06/04/16 19:53 D-Dimer < 135.00 ng/mlDDU (0-234) 06/04/16 19:53 Sodium 137 mmol/L (137-145) D 06/05/16 05:44 Potassium 3.9 mmol/L (3.6-5.0) 06/05/16 05:44 Chloride 99.9 mmol/L (98-107) 06/05/16 05:44 Carbon Dioxide 25 mmol/L (22-30) 06/05/16 05:44 Anion Gap 16 mmol/L 06/05/16 05:44 BUN 19 mg/dL (9-20) 06/05/16 05:44 Creatinine 0.6 mg/dL (0.8-1.5) L 06/05/16 05:44 Estimated GFR > 60 ml/min 06/05/16 05:44 BUN/Creatinine Ratio 31.66 % 06/05/16 05:44 Glucose 202 mg/dL (75-100) H 06/05/16 05:44 POC Glucose 242 (70-105) H 06/05/16 08:47 Hemoglobin A1c 12.3 % (4-6) H 06/05/16 05:44 Calcium 8.3 mg/dL (8.4-10.2) L 06/05/16 05:44 Total Bilirubin 0.4 mg/dL (0.1-1.2) 06/04/16 19:53 AST 15 units/L (5-40) 06/04/16 19:53 ALT 21 units/L (7-56) 06/04/16 19:53 Alkaline Phosphatase 88 units/L (35-129) 06/04/16 19:53 Total Creatine Kinase 108 units/L (55-170) 06/04/16 19:53 CK-MB (CK-2) 4.6 ng/mL (0.0-4.0) H 06/04/16 19:53 CK-MB (CK-2) Rel Index 4.2 (0-4) H 06/04/16 19:53 Troponin T 0.016 ng/mL (0.00-0.029) 06/05/16 01:42 NT-Pro-B Natriuret Pep 103.2 pg/mL (0-900) 06/04/16 19:53 Total Protein 7.1 g/dL (6.3-8.2) 06/04/16 19:53 Albumin 3.7 g/dL (3.9-5) L 06/04/16 19:53 Albumin/Globulin Ratio 1.1 % 06/04/16 19:53 TSH 2.260 mlU/mL (0.270-4.200) 06/04/16 19:53 Urine Color Straw (Yellow) 06/04/16 21:21 Urine Turbidity Clear (Clear) 06/04/16 21:21 Urine pH 5.0 (5.0-7.0) 06/04/16 21:21 Ur Specific [place] 1.027 (1.003-1.030) 06/04/16 21:21 Urine Protein 100 mg/dl mg/dL (Negative) 06/04/16 21:21 Urine Glucose (UA) >=500 mg/dL (Negative) 06/04/16 21:21 Urine Ketones Neg mg/dL (Negative) 06/04/16 21:21 Urine Blood Sm (Negative) 06/04/16 21:21 Urine Nitrite Neg (Negative) 06/04/16 21:21 Urine Bilirubin Neg (Negative) 06/04/16 21:21 Urine Urobilinogen < 2.0 mg/dL (<2.0) 06/04/16 21:21 Ur Leukocyte Esterase Neg (Negative) 06/04/16 21:21 Urine WBC (Auto) 1.0 /HPF (0.0-6.0) 06/04/16 21:21 Urine RBC (Auto) 1.0 /HPF (0.0-6.0) 06/04/16 21:21
[2016-06-05] MEDS ORDERED: NACL 0.9% 500 ML 500 ML IV SCH (12:00)
[2016-06-05 12:51] LABS: Eosinophils % (Auto) 3.1 % (0.0-4.3); Hemoglobin 16.1 gm/dl (11.8-15.2); Mean Corpuscular HGB Conc 33 % (32-34); Mean Corpuscular Hemoglobin 30 pg (28-32); Mean Corpuscular Volume 90 fl (84-94); Platelet Count 187 K/mm3 (140-440); Red Blood Count 5.32 M/mm3 (3.65-5.03); Red Cell Distribution Width 13.2 % (13.2-15.2)
[2016-06-05 12:59] LABS: INR 0.96 (0.87-1.13)
[2016-06-05] MEDS: MOTRIN PO SCH ×2 (13:00→21:46)
[2016-06-05 13:30] LABS: BUN/Creatinine Ratio 28.57; Blood Urea Nitrogen 20 mg/dL (9-20); Calcium 8.4 mg/dL (8.4-10.2); Carbon Dioxide 24 mmol/L (22-30); Chloride 95.8 mmol/L (98-107); Glucose 289 mg/dL (75-100); Sodium 133 mmol/L (137-145)
[2016-06-05 13:41] LABS: Anion Gap 18 mmol/L; Potassium 4.8 mmol/L (3.6-5.0)
[2016-06-05] MEDS: LEVEMIR SUB-Q SCH (23:19)
[2016-06-06] MEDS: HEPARIN SUB-Q SCH ×3 (05:59→21:12)
[2016-06-06] MEDS: VIGAMOX OU SCH ×3 (05:59→21:13)
[2016-06-06 06:18] LABS: Basophils % (Auto) 0.7 % (0.0-1.8); Hematocrit 46.2 % (35.5-45.6); Hemoglobin 15.4 gm/dl (11.8-15.2); Mean Corpuscular HGB Conc 33 % (32-34); Mean Corpuscular Hemoglobin 30 pg (28-32); Mean Corpuscular Volume 91 fl (84-94); Platelet Count 183 K/mm3 (140-440); Red Blood Count 5.08 M/mm3 (3.65-5.03); Red Cell Distribution Width 13.4 % (13.2-15.2); White Blood Count 5.2 K/mm3 (4.5-11.0)
[2016-06-06 06:34] LABS: Blood Urea Nitrogen 28 mg/dL (9-20); Calcium 8.7 mg/dL (8.4-10.2); Carbon Dioxide 31 mmol/L (22-30); Chloride 99.4 mmol/L (98-107); Glucose 130 mg/dL (75-100); INR 0.97 (0.87-1.13); Sodium 138 mmol/L (137-145)
[2016-06-06 06:35] LABS: Partial Thromboplastin Time 32.1 Sec. (24.2-36.6)
[2016-06-06 06:37] LABS: Potassium 3.8 mmol/L (3.6-5.0)
[2016-06-06 06:43] LABS: Anion Gap 11 mmol/L
[2016-06-06] MEDS ORDERED: NACL 0.9% 500 ML 500 ML IV SCH (07:00)
[2016-06-06] MEDS: NOVOLOG SUB-Q SCH ×4 (08:00→23:41)
[2016-06-06] MEDS: LOPRESSOR PO SCH ×2 (09:21→21:11)
[2016-06-06] MEDS: ZESTRIL PO SCH (09:22)
[2016-06-06] MEDS: PLAVIX PO SCH (09:24)
[2016-06-06] MEDS: LYRICA PO SCH ×4 (09:24→21:18)
[2016-06-06] MEDS: KEPPRA PO SCH ×2 (09:24→21:11)
[2016-06-06] MEDS: BABY ASPIRIN PO SCH (09:24)
[2016-06-06] MEDS: IMDUR PO SCH (09:25)
[2016-06-06] MEDS ORDERED: HEPARIN/NS 5000 UNIT/500ML(CATH LAB) 500 ML IR ONE (11:12)
[2016-06-06] MEDS ORDERED: HEPARIN/NS 5000 UNIT/500ML(CATH LAB) 1,000 ML IR ONE (11:19)
[2016-06-06] MEDS ORDERED: XYLOCAINE 2% INFILTRATI ONE (11:19)
[2016-06-06] MEDS: SUBLIMAZE ONE ×2 (11:39→11:46)
[2016-06-06] MEDS: VERSED ONE ×2 (11:39→11:46)
[2016-06-06] MEDS: XYLOCAINE 2% INFILTRATI ONE ×3 (11:39→11:53)
--- NOTE | 2016-06-06 13:01 | Progress Note ---
Assessment and Plan Assessment: Recurrent chest pain History of bypass Hypertension Hyperlipidemia Diabetes insulin-dependent CVA Plan: s/p LHC which revealed patent grafts, full cath report to follow. Currently stable cardiac status. Cont current medical management. The patient has been seen in conjunction with Dr. Gamino who agrees with the assessment and plan of care. Subjective Date of service: 06/06/16 Principal diagnosis: chest pain Interval history: s/p LHC, no complaints. Objective Last Vital Signs Temp 97.6 F 06/06/16 08:00 Pulse 61 06/06/16 09:25 Resp 20 06/06/16 08:00 BP 99/53 06/06/16 09:25 Pulse Ox 98 06/06/16 08:00 - Physical Examination General: No Apparent Distress HEENT: Positive: EOMI (right eye blindness) Neck: Positive: neck supple Cardiac: Positive: Reg Rate and Rhythm, S1/S2 Lungs: Positive: Normal Exam, clear to auscultation, Normal Breath Sounds Neuro: Positive: Grossly Intact, Cranial Nerve 2-12 Intact, Other (left side weakness) Abdomen: Positive: Soft Skin: Positive: Clear Musculoskeletal: No Fluid Collection, No Pain, Normal Range of Motion Extremities: Present: normal. Absent: edema - Labs and Meds Coagulation 06/05/16 06/06/16 Range/Units 12:33 05:00 PT 12.7 12.8 (12.2-14.9) Sec. INR 0.96 0.97 (0.87-1.13) APTT 32.1 (24.2-36.6) Sec. CBC 06/06/16 Range/Units 05:00 WBC 5.2 (4.5-11.0) K/mm3 RBC 5.08 H (3.65-5.03) M/mm3 Hgb 15.4 H (11.8-15.2) gm/dl Hct 46.2 H (35.5-45.6) % Plt Count 183 (140-440) K/mm3 Lymph # 2.0 (1.2-5.4) K/mm3 [place] # 0.4 (0.0-0.8) K/mm3 Eos # 0.2 (0.0-0.4) K/mm3 Baso # 0.0 (0.0-0.1) K/mm3 Comprehensive Metabolic Panel 06/05/16 06/06/16 Range/Units 12:33 05:00 Sodium 133 L 138 (137-145) mmol/L Potassium 4.8 D 3.8 D (3.6-5.0) mmol/L Chloride 95.8 L 99.4 (98-107) mmol/L Carbon Dioxide 24 31 H D (22-30) mmol/L BUN 20 28 H (9-20) mg/dL Creatinine 0.7 L 1.0 (0.8-1.5) mg/dL Glucose 289 H 130 H (75-100) mg/dL Calcium 8.4 8.7 (8.4-10.2) mg/dL - Imaging and Cardiology Stress echo: report reviewed (02/2016 mild apical ischemia) Echo: report reviewed (normally function mild MR mild TR 2016) Cardiac cath: report reviewed (09/2014 patent BROWN to LAD patent SVG OM patent SVG PDA small vessel disease in LAD) - Telemetry EKG Rhythm: Sinus Rhythm - EKG Sinus rhythms and dysrhythmias: sinus rhythm (normal sinus rhythm with LVH with strain pattern)
--- NOTE | 2016-06-06 13:49 | Cardiac Catherization Report ---
CARDIAC CATHETERIZATION CLINICAL INFORMATION: The patient is a 56-year-old gentleman with known coronary artery disease with history of bypass surgery in 2011, presented with prolonged episode of chest pain. The patient had a stress test done in 02/2016, which revealed some mild ischemia in the apical region. Apparently, the patient passed out for a short time with no loss of consciousness when he bent forward and he has atypical chest pain, considering this, he is scheduled for cardiac catheterization for definitive diagnosis and treatment. He had history of catheterization done in 09/2014 with patent left internal mammary to the LAD, patent saphenous vein graft to the obtuse marginal branch, and patent saphenous vein graft to the PDA. Presently, cardiac catheterization being performed for diagnostic and prognostic purposes. DESCRIPTION OF PROCEDURE: The patient was brought to the catheterization laboratory in a fasting condition. The right wrist area and forearm thoroughly cleansed with Betadine solution. Sterile drapes were applied. Local anesthesia was achieved using 2% Xylocaine. The patient was sedated with IV Versed and fentanyl. Local anesthesia was given in the right groin area and right femoral artery puncture was made using 21-gauge micropuncture needle. Subsequently, a 5-Belarusian sheath was introduced. A 5-Belarusian multipurpose catheter was used to obtain the angiograms of the right coronary artery and left ventriculogram done in BAKER and LATVIAN projection. Subsequently, JL4 catheter was used to obtain the angiograms of the left coronary artery. Mammary catheter was used to obtain the left internal mammary angiogram. This was followed by changing the sheath, difficult to cannulate the vein grafts ,5F sheath was changed to 6-Bel[place]ian and 6 -Belarusian multipurpose catheter was used to engage both the vein grafts to the diagonal and the obtuse marginal branch. At the end of the procedure, angiogram of the right femoral artery was obtained.When it was felt appropriate, 6-[place]ian ProGlide suture mediated closure device was applied in a standard fashion with good hemostasis. Good hemostasis was achieved with good distal pulses post-procedure. The patient tolerated the procedure well. No untoward complications were noted. Following findings were noted. HEMODYNAMICS: 1. Opening aortic pressure 116/60. Left ventricular pressure 92/8. No gradient across the aortic valve. Estimated ejection fraction 55%. 2. Left ventriculogram done in BAKER and LATVIAN projection with the hand injection showed normal sized left ventricle with normal contractility. End diastolic and systolic volumes are normal. 3. Right coronary artery nondominant vessel shows moderate disease in the RV branch. However, this is a small nondominant and unchanged from before. 4. Left coronary artery, left main without significant disease. LAD is occluded in the proximal part. Ramus branch is visualized which is small to moderate sized with some disease proximally. Proximal obtuse marginal branch is occluded. Distal obtuse marginal branch showed 60-70% long lesion. However, this vessel is very small caliber, probably 1 mm or so. 5. Left internal mammary to the mid LAD is widely patent; however, distal LAD is severely diffusely diseased, very narrow vessel. Saphenous vein graft to the diagonal is patent. Diagonal itself is without significant disease. Saphenous vein graft to the obtuse marginal branch is patent and distal obtuse marginal branch without significant disease. 6. Collaterals none. FINAL IMPRESSION: Normal sized left ventricle with normal contractility with significant LAD disease and obtuse marginal disease. RCA small nondominant. At this time, left internal mammary to the LAD is widely patent. However, severe diffuse distal disease noted and very small caliber, similarly vein graft to the diagonal and the obtuse margin are patent. Distal obtuse marginal branch shows diseased proximally. However, distal vessel is very small. Considering the above angiographic picture, which appeared to be remained more or less unchanged from 09/2014, would continue present medical therapy and risk factor modification. No untoward complications were noted. Findings were explained to the patient. He understands. JOB# [id number] BOBBY/AVLIN JEAN
--- NOTE | 2016-06-06 14:37 | Progress Note ---
Assessment and Plan Assessment and plan: Syncope Chest pain CAD status post CABG Diabetes mellitus type 2 on insulin Hyperlipidemia - First set of cardiac enzymes were negative, patient has a stress test done in February 2016 and was normal, cardiology consult was placed, resume home medications, cardiac cath was done this morning and showed patent stents - Orthostatic vitals checked and negative, blood pressures on the low side, hypertension on IV normal saline 125 mL per hour - The syncopal episode could vasovagal, CT head was negative - Patient is on a sliding insulin and 45 units daily at bedtime - Patient is on statin DVT prophylaxis - Heparin Disposition - Continue inpatient care - Possible discharge tomorrow if the patient is stabilized and symptoms of dizziness is getting better History Interval history: Patient was seen and examined this morning. Patient feels dizzy when he tried to stand up. His blood pressure is marginally low. Hospitalist Physical - Physical exam Narrative exam: Not in cardiopulmonary distress. The patient appeared well nourished and normally developed. Vital signs as documented. Head exam is unremarkable. No scleral icterus . Neck is without jugular venous distension, thyromegaly, or carotid bruits. Lungs are clear to auscultation. Cardiac exam reveals regular rate and Rhythm. First and second heart sounds normal. No murmurs, rubs or gallops. Abdominal exam reveals normal bowel sounds, no masses, no organomegaly and no aortic enlargement. Extremities are nonedematous and both femoral and pedal pulses are normal. COAGULATION OPERATOR: Alert and oriented 3. No focal weakness. - Constitutional Vitals: Temp Pulse Resp BP Pulse Ox 97.6 F 61 20 99/53 98 06/06/16 08:00 06/06/16 09:25 06/06/16 08:00 06/06/16 09:25 06/06/16 08:00 General appearance: Present: no acute distress Results - Labs CBC & Chem 7: 06/06/16 05:00 06/06/16 05:00 Labs: Laboratory Last Values WBC 5.2 K/mm3 (4.5-11.0) 06/06/16 05:00 RBC 5.08 M/mm3 (3.65-5.03) H 06/06/16 05:00 Hgb 15.4 gm/dl (11.8-15.2) H 06/06/16 05:00 Hct 46.2 % (35.5-45.6) H 06/06/16 05:00 MCV 91 fl (84-94) 06/06/16 05:00 MCH 30 pg (28-32) 06/06/16 05:00 MCHC 33 % (32-34) 06/06/16 05:00 RDW 13.4 % (13.2-15.2) 06/06/16 05:00 Plt Count 183 K/mm3 (140-440) 06/06/16 05:00 Lymph % (Auto) 37.8 % (13.4-35.0) H 06/06/16 05:00 Daniels % (Auto) 7.4 % (0.0-7.3) H 06/06/16 05:00 Eos % (Auto) 4.0 % (0.0-4.3) 06/06/16 05:00 Baso % (Auto) 0.7 % (0.0-1.8) 06/06/16 05:00 Lymph # 2.0 K/mm3 (1.2-5.4) 06/06/16 05:00 Daniels # 0.4 K/mm3 (0.0-0.8) 06/06/16 05:00 Eos # 0.2 K/mm3 (0.0-0.4) 06/06/16 05:00 Baso # 0.0 K/mm3 (0.0-0.1) 06/06/16 05:00 Seg Neutrophils % 50.1 % (40.0-70.0) 06/06/16 05:00 Seg Neutrophils # 2.6 K/mm3 (1.8-7.7) 06/06/16 05:00 PT 12.8 Sec. (12.2-14.9) 06/06/16 05:00 INR 0.97 (0.87-1.13) 06/06/16 05:00 APTT 32.1 Sec. (24.2-36.6) 06/06/16 05:00 Thrombin Time 16.2 Sec. (15.1-19.6) 06/04/16 19:53 D-Dimer < 135.00 ng/mlDDU (0-234) 06/04/16 19:53 Sodium 138 mmol/L (137-145) 06/06/16 05:00 Potassium 3.8 mmol/L (3.6-5.0) D 06/06/16 05:00 Chloride 99.4 mmol/L (98-107) 06/06/16 05:00 Carbon Dioxide 31 mmol/L (22-30) H D 06/06/16 05:00 Anion Gap 11 mmol/L 06/06/16 05:00 BUN 28 mg/dL (9-20) H 06/06/16 05:00 Creatinine 1.0 mg/dL (0.8-1.5) 06/06/16 05:00 Estimated GFR > 60 ml/min 06/06/16 05:00 BUN/Creatinine Ratio 28.00 % 06/06/16 05:00 Glucose 130 mg/dL (75-100) H 06/06/16 05:00 POC Glucose 278 (70-105) H 06/05/16 21:45 Hemoglobin A1c 12.3 % (4-6) H 06/05/16 05:44 Calcium 8.7 mg/dL (8.4-10.2) 06/06/16 05:00 Total Bilirubin 0.4 mg/dL (0.1-1.2) 06/04/16 19:53 AST 15 units/L (5-40) 06/04/16 19:53 ALT 21 units/L (7-56) 06/04/16 19:53 Alkaline Phosphatase 88 units/L (35-129) 06/04/16 19:53 Total Creatine Kinase 108 units/L (55-170) 06/04/16 19:53 CK-MB (CK-2) 4.6 ng/mL (0.0-4.0) H 06/04/16 19:53 CK-MB (CK-2) Rel Index 4.2 (0-4) H 06/04/16 19:53 Troponin T 0.016 ng/mL (0.00-0.029) 06/05/16 01:42 NT-Pro-B Natriuret Pep 103.2 pg/mL (0-900) 06/04/16 19:53 Total Protein 7.1 g/dL (6.3-8.2) 06/04/16 19:53 Albumin 3.7 g/dL (3.9-5) L 06/04/16 19:53 Albumin/Globulin Ratio 1.1 % 06/04/16 19:53 TSH 2.260 mlU/mL (0.270-4.200) 06/04/16 19:53 Urine Color Straw (Yellow) 06/04/16 21:21 Urine Turbidity Clear (Clear) 06/04/16 21:21 Urine pH 5.0 (5.0-7.0) 06/04/16 21:21 Ur Specific [place] 1.027 (1.003-1.030) 06/04/16 21:21 Urine Protein 100 mg/dl mg/dL (Negative) 06/04/16 21:21 Urine Glucose (UA) >=500 mg/dL (Negative) 06/04/16 21:21 Urine Ketones Neg mg/dL (Negative) 06/04/16 21:21 Urine Blood Sm (Negative) 06/04/16 21:21 Urine Nitrite Neg (Negative) 06/04/16 21:21 Urine Bilirubin Neg (Negative) 06/04/16 21:21 Urine Urobilinogen < 2.0 mg/dL (<2.0) 06/04/16 21:21 Ur Leukocyte Esterase Neg (Negative) 06/04/16 21:21 Urine WBC (Auto) 1.0 /HPF (0.0-6.0) 06/04/16 21:21 Urine RBC (Auto) 1.0 /HPF (0.0-6.0) 06/04/16 21:21
[2016-06-06] MEDS ORDERED: NACL 0.9% 1000 ML 1,000 ML IV SCH (15:00)
[2016-06-06] MEDS: MORPHINE IV PRN ×2 (19:16→23:40)
[2016-06-06] MEDS: LEVEMIR SUB-Q SCH (23:41)
[2016-06-07] MEDS: HEPARIN SUB-Q SCH ×2 (05:23→15:00)
[2016-06-07] MEDS: VIGAMOX OU SCH ×2 (05:24→15:00)
[2016-06-07 06:04] LABS: Anion Gap 17 mmol/L; BUN/Creatinine Ratio 28.57; Blood Urea Nitrogen 20 mg/dL (9-20); Calcium 8.3 mg/dL (8.4-10.2); Carbon Dioxide 25 mmol/L (22-30); Chloride 100.6 mmol/L (98-107); Glucose 254 mg/dL (75-100); Potassium 4.2 mmol/L (3.6-5.0); Sodium 138 mmol/L (137-145)
[2016-06-07] MEDS: NOVOLOG SUB-Q SCH ×3 (08:25→17:30)
[2016-06-07] MEDS: MORPHINE IV PRN (08:33)
--- NOTE | 2016-06-07 09:21 | Discharge Summary ---
Providers - Providers Date of Admission: 06/04/16 22:48 Attending physician: AIDAN BRITO MD 06/04/16 23:38 Consult to Physician [CONS] Routine Consulting Provider: ALICE VALDERRAMA Reason For Exam: chest pain and syncope Place consult to:: Dr. Marshall Notified:: please call Primary care physician: RADIOLOGY SPECIAL PROCEDURE TECH Hospitalization Condition: Stable Hospital course: Syncope Chest pain CAD status post CABG Diabetes mellitus type 2 on insulin Hyperlipidemia - First set of cardiac enzymes were negative, patient has a stress test done in February 2016 and was normal, cardiology consult was placed, resume home medications, cardiac cath was done this morning and showed patent stents - Orthostatic vitals checked and negative, blood pressures on the low side, hypertension on IV normal saline 125 mL per hour - The syncopal episode could vasovagal, CT head was negative - Patient is on a sliding insulin and 45 units daily at bedtime - Patient is on statin DVT prophylaxis - Heparin Disposition - Continue inpatient care - Possible discharge tomorrow if the patient is stabilized and symptoms of dizziness is getting better Disposition: DISCHARGED TO HOME OR SELFCARE Time spent for discharge: 35 minutes Core Measure Documentation - Palliative Care Palliative Care/ Comfort Measures: Not Applicable - Core Measures Any of the following diagnoses?: none Exam - Constitutional Vitals: Temp Pulse Resp BP Pulse Ox 97.5 F L 63 20 117/81 97 06/07/16 04:20 06/07/16 04:20 06/07/16 04:20 06/07/16 04:20 06/07/16 04:20 General appearance: Present: no acute distress, well-nourished - EENT Eyes: Present: PERRL ENT: hearing intact, clear oral mucosa - Neck Neck: Present: supple, normal ROM - Respiratory Respiratory effort: normal Respiratory: bilateral: CTA - Cardiovascular Heart Sounds: Present: S1 & S2. Absent: rub, click - Extremities Extremities: pulses symmetrical, No edema Peripheral Pulses: within normal limits - Abdominal General gastrointestinal: Present: soft, non-tender, non-distended, normal bowel sounds Male genitourinary: Present: normal - Integumentary Integumentary: Present: clear, warm, dry - Musculoskeletal Musculoskeletal: gait normal, strength equal bilaterally - Psychiatric Psychiatric: appropriate mood/affect, intact judgment & insight - Neurologic Neurologic: CNII-XII intact, moves all extremities Plan Follow up with: PRIMARY CARE, [Primary Care Provider] - 3-5 Days Forms: CardCath PCI D/C Instructions
[2016-06-07] MEDS: BABY ASPIRIN PO SCH (10:29)
[2016-06-07] MEDS: LYRICA PO SCH ×2 (10:29→10:30)
[2016-06-07] MEDS: PLAVIX PO SCH (10:30)
[2016-06-07] MEDS: IMDUR PO SCH (10:30)
[2016-06-07] MEDS: KEPPRA PO SCH (10:30)
[2016-06-07] MEDS: LOPRESSOR PO SCH (10:31)
[2016-06-07] MEDS: ZESTRIL PO SCH (10:31)
--- NOTE | 2016-06-07 10:59 | Progress Note ---
Assessment and Plan Assessment: Recurrent chest pain History of bypass Hypertension Hyperlipidemia Diabetes insulin-dependent CVA Plan: s/p LHC which revealed patent grafts. Currently stable cardiac status. Cont current medical management. Pt may discharge home from cardiology standpoint. Follow up in our [place] office with Dr. Harper on 06/16/2016 @ 12:30PM. The patient has been seen in conjunction with Dr. Gamino who agrees with the assessment and plan of care. Subjective Date of service: 06/07/16 Principal diagnosis: chest pain Interval history: s/p LHC yesterday, denies cp, c/o right groin soreness. Right groin LHC site c/d /i, some localized swelling, with no evidence of bleeding or hematoma. VSS. Objective Last Vital Signs Temp 97.8 F 06/07/16 09:58 Pulse 65 06/07/16 10:31 Resp 18 06/07/16 09:58 BP 150/86 06/07/16 10:31 Pulse Ox 97 06/07/16 09:58 - Physical Examination General: No Apparent Distress HEENT: Positive: EOMI (right eye blindness) Neck: Positive: neck supple Cardiac: Positive: Reg Rate and Rhythm, S1/S2 Lungs: Positive: Normal Exam, clear to auscultation, Normal Breath Sounds Neuro: Positive: Grossly Intact, Cranial Nerve 2-12 Intact, Other (left side weakness) Abdomen: Positive: Soft Skin: Positive: Clear Musculoskeletal: No Fluid Collection, No Pain, Normal Range of Motion Extremities: Present: normal. Absent: edema - Labs and Meds Comprehensive Metabolic Panel 06/07/16 Range/Units 04:55 Sodium 138 (137-145) mmol/L Potassium 4.2 (3.6-5.0) mmol/L Chloride 100.6 (98-107) mmol/L Carbon Dioxide 25 (22-30) mmol/L BUN 20 (9-20) mg/dL Creatinine 0.7 L (0.8-1.5) mg/dL Glucose 254 H (75-100) mg/dL Calcium 8.3 L (8.4-10.2) mg/dL - Imaging and Cardiology Stress echo: report reviewed (02/2016 mild apical ischemia) Echo: report reviewed (normally function mild MR mild TR 2016) Cardiac cath: report reviewed (09/2014 patent BROWN to LAD patent SVG OM patent SVG PDA small vessel disease in LAD) - Telemetry EKG Rhythm: Sinus Rhythm - EKG Sinus rhythms and dysrhythmias: sinus rhythm (normal sinus rhythm with LVH with strain pattern)
--- NOTE | 2016-06-07 15:01 | XRay Report ---
LEFT ELBOW: History: Trauma with pain. The bony architecture is intact without evidence of fracture or dislocation. No significant soft tissue abnormality is seen. IMPRESSION: Normal left elbow.
--- NOTE | 2016-06-07 15:02 | XRay Report ---
LEFT FOREARM: History: Trauma with pain. AP and lateral views of the forearm demonstrate normal mineralization and contours for this patient's age. No destructive changes are noted and the adjacent soft tissues are normal. IMPRESSION: Normal left forearm.
--- NOTE | 2016-06-07 15:05 | XRay Report ---
LEFT WRIST: History: Wrist pain after trauma. Routine views demonstrate the carpal bones to be well mineralized with well preserved bony mineralization and interosseous joint spaces. The carpal and adjacent articular bones have normal contours. The surrounding soft tissues are unremarkable. IMPRESSION: Normal study.
[2016-06-07 17:20] VITALS: BP 125/60
== END 2016-06-07 18:44 | disposition home or self-care (01) | DRG 287 ==
LOC: ED 19:40 → 4A 22:48
PROVIDERS: ADMIT Internal Medicine; ATTEND Internal Medicine
PROC: 4A023N7 Measurement of Cardiac Sampling and Pressure, Left Heart, Percutaneous Approach (ICD-10-PCS; principal; 2016-06-06)
PROC: B2111ZZ Fluoroscopy of Multiple Coronary Arteries using Low Osmolar Contrast (ICD-10-PCS; 2016-06-06)
PROC: B2151ZZ Fluoroscopy of Left Heart using Low Osmolar Contrast (ICD-10-PCS; 2016-06-06)
DX: R07.9 Chest pain, unspecified (principal); E87.1 Hypo-osmolality and hyponatremia; R55 Syncope and collapse; I10 Essential (primary) hypertension; I25.10 Atherosclerotic heart disease of native coronary artery without angina pectoris; J45.909 Unspecified asthma, uncomplicated; E11.65 Type 2 diabetes mellitus with hyperglycemia; E78.5 Hyperlipidemia, unspecified; E11.40 Type 2 diabetes mellitus with diabetic neuropathy, unspecified; R20.2 Paresthesia of skin; Z79.4 Long term (current) use of insulin; Z95.1 Presence of aortocoronary bypass graft; I25.2 Old myocardial infarction; Z87.891 Personal history of nicotine dependence; Z88.8 Allergy status to other drugs, medicaments and biological substances; Z86.73 Personal history of transient ischemic attack (TIA), and cerebral infarction without residual deficits
CPT/HCPCS: 36415; 70450; 71010; 80048; 80053; 81001; 82550; 82553; 82962; 83036; 83880; 84443; 84484; 85025; 85379; 85610; 85670; 85730; 93005; 93010; 93459; 96374; 96375; A9270-GY; C1760; C1769; C1894; J1644; J1815; J1818; J2250; J2270; J2405; J3010; J7040; Q9967

== ENCOUNTER 2017-01-24 18:12 | Inpatient (IN) | payer MEDICAID ==
[2017-01-24 19:20] LABS: Basophils % (Auto) 0.7 % (0.0-1.8); Eosinophils % (Auto) 2.4 % (0.0-4.3); Hematocrit 50.7 % (35.5-45.6); Hemoglobin 16.9 gm/dl (11.8-15.2); Mean Corpuscular HGB Conc 33 % (32-34); Mean Corpuscular Hemoglobin 31 pg (28-32); Mean Corpuscular Volume 93 fl (84-94); Platelet Count 199 K/mm3 (140-440); Red Blood Count 5.47 M/mm3 (3.65-5.03); Red Cell Distribution Width 13.7 % (13.2-15.2); White Blood Count 7.1 K/mm3 (4.5-11.0)
[2017-01-24 19:20] LABS: Anion Gap 17 mmol/L; BUN/Creatinine Ratio 19; Blood Urea Nitrogen 17 mg/dL (9-20); Calcium 9.4 mg/dL (8.4-10.2); Carbon Dioxide 29 mmol/L (22-30); Chloride 96.8 mmol/L (98-107); Glucose 101 mg/dL (75-100); Potassium 3.9 mmol/L (3.6-5.0); Sodium 139 mmol/L (137-145)
[2017-01-24 20:17] LABS: Cholesterol 155 mg/dL (50-199); HDL Cholesterol 45 mg/dL (40-59); LDL Cholesterol,Direct 78 mg/dL (50-130); Triglycerides 164 mg/dL (2-149)
[2017-01-24] MEDS ORDERED: ASPIRIN PO ONE (22:17)
[2017-01-24] MEDS ORDERED: NITROSTAT SL ONE (22:24)
--- NOTE | 2017-01-24 22:24 | Emergency Department Report ---
ED Chest Pain HPI - General Chief Complaint: Dizziness Stated Complaint: CHEST PAIN Time Seen by Provider: 01/24/17 22:15 Source: patient, EMS Mode of arrival: Stretcher Limitations: Physical Limitation - History of Present Illness Initial Comments: 56 yo male who comes in today due to chest pain. States that he was at home playing cards around 4pm and started having left sided chest pain. Chest pain rated as 8/10, aching, sharp, with radiation to his left arm. Also admitted to shortness of breath and diaphoresis. Cardiac history. MD Complaint: chest pain -: This evening (4pm ) Onset: during rest Pain Location: left chest Pain Radiation: LUE Severity scale (0 -10): 8 Quality: aching, sharp, pressure, squeezing Consistency: constant Improves With: nothing Worsens With: exertion Context: other (cardiac history ) re: diaphoresis, other (shortness of breath ) Treatments Prior to Arrival: none Aspirin use within the Past 7 Days: (1) Yes - Related Data On Oral Contraceptives: No Home Medications Medication Instructions Recorded Confirmed Last Taken Pregabalin [Lyrica] 100 mg PO QHS 10/23/16 01/24/17 10/22/16 FLUoxetine [PROzac] 20 mg PO QDAY 01/24/17 01/24/17 Unknown Sitagliptin Phosphate [Januvia] 100 mg PO DAILY 01/24/17 01/24/17 Unknown Previous Rx's Medication Instructions Recorded Last Taken Type Amlodipine Besylate [Norvasc] 2.5 mg PO DAILY #30 tab 10/23/16 Unknown Rx AtorvaSTATin [Lipitor] 80 mg PO QHS #30 tablet 10/23/16 Unknown Rx ISOSORBIDE MONOnitrate [Imdur ER] 30 mg PO DAILY #30 tablet 10/23/16 Unknown Rx Metoprolol [Lopressor TAB] 50 mg PO BID #30 tablet 10/23/16 Unknown Rx Allergies Allergy/AdvReac Type Severity Reaction Status Date / Time Tetracyclines AdvReac Mild Rash Verified 12/17/12 22:31 Heart Score - HEART Score History: Moderately suspicious EKG: Non-specific Age: 45-65 Risk factors: > 3 risk factors or hx of atherosclerotic disease Troponin: 1-3x normal limit HEART Score: 6 ED Review of Systems ROS: Stated complaint: CHEST PAIN Other details as noted in HPI Constitutional: denies: chills, fever Eyes: denies: eye pain, eye discharge, vision change ENT: denies: ear pain, throat pain Respiratory: denies: cough, shortness of breath, wheezing Cardiovascular: as per HPI, chest pain Endocrine: no symptoms reported Gastrointestinal: denies: abdominal pain, nausea, diarrhea Genitourinary: denies: urgency, dysuria Musculoskeletal: denies: back pain, joint swelling, arthralgia Skin: denies: rash, lesions Neurological: denies: headache, weakness, paresthesias Psychiatric: denies: anxiety, depression Hematological/Lymphatic: denies: easy bleeding, easy bruising ED Past Medical Hx - Past Medical History Hx Hypertension: Yes Hx CVA: Yes (X 3 resid.left sided weakness and occasional slurred speech) Hx Heart Attack/AMI: Yes (X 3, S/P stents and CABG) Hx Congestive Heart Failure: Yes Hx Diabetes: Yes Hx Deep Vein Thrombosis: No Hx Pulmonary Embolism: No Hx Liver Disease: No Hx Sickle Cell Disease: No Hx Arthritis: Yes Hx Seizures: Yes Hx Asthma: Yes Hx COPD: No Hx Tuberculosis: No Hx Dementia: No Hx HIV: No Additional medical history: triple bypass. 2 ischemic CVAs, 1 hemorrhagic CVA in Spring 2016 - Surgical History Hx Coronary Stent: Yes Hx Open Heart Surgery: No Hx Pacemaker: No Hx Internal Defibrillator: No Hx Cholecystectomy: No Hx Appendectomy: No Hx Breast Surgery: No Additional Surgical History: NECK FUSION with titanium; tonsilectomy. CABG - Social History Smoking Status: Former Smoker - Medications Home Medications: Home Medications Medication Instructions Recorded Confirmed Last Taken Type Amlodipine Besylate [Norvasc] 2.5 mg PO DAILY #30 tab 10/23/16 01/24/17 Unknown Rx AtorvaSTATin [Lipitor] 80 mg PO QHS #30 tablet 10/23/16 01/24/17 Unknown Rx ISOSORBIDE MONOnitrate [Imdur ER] 30 mg PO DAILY #30 tablet 10/23/16 01/24/17 Unknown Rx Metoprolol [Lopressor TAB] 50 mg PO BID #30 tablet 10/23/16 01/24/17 Unknown Rx Pregabalin [Lyrica] 100 mg PO QHS 10/23/16 01/24/17 10/22/16 History FLUoxetine [PROzac] 20 mg PO QDAY 01/24/17 01/24/17 Unknown History Sitagliptin Phosphate [Januvia] 100 mg PO DAILY 01/24/17 01/24/17 Unknown History ED Physical Exam - General Limitations: Physical Limitation General appearance: anxious - Head Head exam: Present: atraumatic, normocephalic - Eye Eye exam: Present: normal appearance - ENT ENT exam: Present: mucous membranes moist - Neck Neck exam: Present: normal inspection - Respiratory Respiratory exam: Present: normal lung sounds bilaterally. Absent: respiratory distress - Cardiovascular Cardiovascular Exam: Present: regular rate, normal rhythm. Absent: systolic murmur, diastolic murmur, rubs, gallop - GI/Abdominal GI/Abdominal exam: Present: soft, normal bowel sounds - Extremities Exam Extremities exam: Present: normal inspection - Back Exam Back exam: Present: normal inspection - Neurological Exam Neurological exam: Present: alert, oriented X3 - Psychiatric Psychiatric exam: Present: anxious - Skin Skin exam: Present: other (flushed ) ED Course Vital Signs 01/24/17 01/24/17 01/24/17 18:20 18:26 18:30 Temperature 98.5 F Pulse Rate 60 67 63 Respiratory 18 10 L 12 Rate Blood Pressure 110/70 136/74 Blood Pressure [Left] O2 Sat by Pulse 95 99 Oximetry 01/24/17 01/24/17 01/24/17 19:26 23:00 23:47 Temperature 98.4 F Pulse Rate 60 58 L 60 Respiratory 19 15 Rate Blood Pressure 172/85 188/97 Blood Pressure 141/78 [Left] O2 Sat by Pulse 97 98 Oximetry - Reevaluation(s) Reevaluation #1: 01/25/17 01:06 Patient has an extensive cardiac history. Plan to admit for chest pain rule out. PASCUAL score - Pascual Score Age > 65: (0) No Aspirin use within the Past 7 Days: (1) Yes 3 or more CAD Risk Factors: (1) Yes 2 or more Angina events in past 24 hrs: (0) No Known CAD with more than 50% Stenosis: (1) Yes Elevated Cardiac Markers: (1) Yes ST Deviation Greater than 0.5mm: (0) No PASCUAL Score: 4 ED Medical Decision Making - Lab Data Result diagrams: 01/24/17 18:50 01/24/17 18:45 - EKG Data -: EKG Interpreted by Ca EKG shows normal: sinus rhythm Rate: normal - EKG Data When compared to previous EKG there are: previous EKG unavailable Interpretation: nonspecific ST-T wave soniya - Radiology Data Radiology results: report reviewed No acute process. - Medical Decision Making Extensive cardiac history. Nonspecific st-t changes on the ekg. Elevated troponin-most likely due to chf. - Differential Diagnosis chest pain, chf Critical care attestation.: If time is entered above; I have spent that time in minutes in the direct care of this critically ill patient, excluding procedure time. ED Disposition Clinical Impression: Chest pain, Hx of CABG, Congestive heart failure Disposition: DC-09 OP ADMIT IP TO THIS HOSP Is pt being admited?: Yes Does the pt Need Aspirin: Yes Condition: Stable Instructions: Chest Pain (ED) Referrals: LISET GONZALEZ MD [Primary Care Provider] - 3-5 Days Time of Disposition: 01:10
--- NOTE | 2017-01-24 22:53 | XRay Report ---
FINAL REPORT EXAM: XR CHEST 1V AP HISTORY: chest pain TECHNIQUE: AP portable view of the chest PRIORS: CXR 07/06/2015 FINDINGS: Lines, tubes, and devices: Median sternotomy wires are noted with surgical clips. Lungs and pleura: Trachea is normal in position. Lungs are clear of infiltrate, pleural effusion, vascular congestion, or pneumothorax. No change. Cardiomediastinal silhouette: Cardiac and mediastinal silhouettes are unremarkable. Other: Bony structures demonstrate remote posttraumatic deformity of the mid left clavicle, unchanged. IMPRESSION: No acute cardiopulmonary process seen. No change.
[2017-01-25] MEDS ORDERED: MORPHINE IV ONE (01:02)
[2017-01-25] MEDS ORDERED: ZOFRAN IV ONE (01:02)
[2017-01-25] MEDS ORDERED: TYLENOL PO PRN (02:27)
[2017-01-25] MEDS ORDERED: MILK OF MAGNESIA PO PRN (02:27)
[2017-01-25] MEDS ORDERED: DULCOLAX PR PRN (02:27)
--- NOTE | 2017-01-25 02:40 | History and Physical Report ---
History of Present Illness Date of examination: 01/25/17 History of present illness: 56-year-old man history of hypertension, diabetes, carotid artery disease, seizure, CVA comes to emergency room with complaints of chest pain located in the epigastric area which he describes a sharp pain, intermittent in nature lasting 10 minutes, intensity 5/10, radiating to the neck and left shoulder, he cannot identify exacerbating factors. He took one nitroglycerin without any relief in symptoms. He had a cardiac cath in May which showed patent stents. No nausea vomiting, diaphoresis, shortness of breath Review Of Systems: Constitutional: no weight loss Ears, eyes, nose, mouth and throat: no nasal congestion, no nasal discharge, no sinus pressure, blurry vision, diplopia Neck: No neck pain or rigidity. Cardiovascular: No palpitations Respiratory: No shortness of breath, cough Gastrointestinal: No abdominal pain, hematochezia Genitourinary : no dysuria, frequency , hematuria Musculoskeletal: no muscle ache Integumentary: no rash, no pruritis Neurological: no parathesias, focal weakness Endocrine: no cold or heat intolerance, no polyuria or polydipsia Hematologic/Lymphatic: no easy bruising, no easy bleeding, no gland swelling Allergic/Immunologic: no urticaria, no angioedema. PAST MEDICAL HISTORY:hypertension, diabetes, carotid artery disease, seizure, CVA PAST SURGICAL HISTORY:CABG, neck surgery FAMILY HISTORY:hypertension SOCIAL HISTORY: Denies alcohol, tobacco, drugs Medications and Allergies Allergies Allergy/AdvReac Type Severity Reaction Status Date / Time Tetracyclines AdvReac Mild Rash Verified 12/17/12 22:31 Home Medications Medication Instructions Recorded Confirmed Last Taken Type Amlodipine Besylate [Norvasc] 2.5 mg PO DAILY #30 tab 10/23/16 01/24/17 Unknown Rx AtorvaSTATin [Lipitor] 80 mg PO QHS #30 tablet 10/23/16 01/24/17 Unknown Rx ISOSORBIDE MONOnitrate [Imdur ER] 30 mg PO DAILY #30 tablet 10/23/16 01/24/17 Unknown Rx Metoprolol [Lopressor TAB] 50 mg PO BID #30 tablet 10/23/16 01/24/17 Unknown Rx Pregabalin [Lyrica] 100 mg PO QHS 10/23/16 01/24/17 10/22/16 History FLUoxetine [PROzac] 20 mg PO QDAY 01/24/17 01/24/17 Unknown History Sitagliptin Phosphate [Januvia] 100 mg PO DAILY 01/24/17 01/24/17 Unknown History Exam - Physical Exam Narrative exam: Gen. appearance: Patient lying in bed in no acute distress HEENT: Normocephalic/atraumatic, pupils equal round reactive to light, extra occular movement intact, no scleral icterus, no JVD or thyromegaly or nodule, neck is supple, mucous membrane moist, no erythema or exudate Heart: S1-S2, regular rate and rhythm Lungs: Clear to auscultation bilateral breathing comfortable Abdomen: Positive bowel sounds, nontender, nondistended, no organomegaly Extremities: No edema, cyanosis, clubbing Neuro:: Oriented 3 , cranial nerves II-12 intact, speech, motor intact Skin: No rash, nodules, warm dry - Constitutional Vitals: Temp Pulse Resp BP Pulse Ox 98.4 F 60 15 188/97 98 01/24/17 19:26 01/24/17 23:47 01/24/17 23:00 01/24/17 23:47 01/24/17 23:00 Results - Labs CBC & Chem 7: 01/26/17 04:43 01/26/17 04:43 Labs: Abnormal lab results 01/24/17 01/24/17 Range/Units 18:45 18:50 RBC 5.47 H (3.65-5.03) M/mm3 Hgb 16.9 H (11.8-15.2) gm/dl Hct 50.7 H (35.5-45.6) % Elbert % (Auto) 9.1 H (0.0-7.3) % Chloride 96.8 L (98-107) mmol/L Glucose 101 H (75-100) mg/dL Troponin T 0.033 H (0.00-0.029) ng/mL Triglycerides 164 H (2-149) mg/dL - Imaging and Cardiology EKG: image reviewed Chest x-ray: image reviewed Assessment and Plan Assessment Unstable angina Coronary artery disease Hypertension Diabetes Seizure History of CVA Plan Admit to medicine Check cardiac enzymes, consult cardiology Start IV morphine, outpatient medications Check fingersticks and initiate insulin sliding scale DVT prophalaxis
[2017-01-25] MEDS ORDERED: D50W (25GM) Vial IV PRN (03:00)
[2017-01-25] MEDS: NOVOLOG SUB-Q SCH ×4 (09:46→22:31)
[2017-01-25] MEDS ORDERED: LOVENOX SUB-Q SCH (10:00)
[2017-01-25] MEDS ORDERED: IMDUR PO SCH (10:00)
[2017-01-25] MEDS ORDERED: NON-FORMULARY (Amlodipine Besylate [Norvasc] 2.5 MG) PO SCH (10:00)
[2017-01-25] MEDS ORDERED: NON-FORMULARY (Sitagliptin Phosphate [Januvia] 100 MG) PO SCH (10:00)
[2017-01-25] MEDS: ZOFRAN IV PRN (10:14)
[2017-01-25] MEDS: LOPRESSOR PO SCH ×2 (10:15→22:29)
[2017-01-25] MEDS: NORVASC PO SCH (10:15)
[2017-01-25] MEDS: TRADJENTA PO SCH (10:16)
[2017-01-25] MEDS: LOVENOX SUB-Q SCH (10:16)
[2017-01-25] MEDS: MORPHINE IV PRN ×3 (10:17→22:36)
[2017-01-25] MEDS: PROzac PO SCH (10:17)
--- NOTE | 2017-01-25 11:40 | Consultation ---
History of Present Illness Consult date: 01/25/17 Medications and Allergies Allergies Allergy/AdvReac Type Severity Reaction Status Date / Time Tetracyclines AdvReac Mild Rash Verified 12/17/12 22:31 Home Medications Medication Instructions Recorded Confirmed Last Taken Type Amlodipine Besylate [Norvasc] 2.5 mg PO DAILY #30 tab 10/23/16 01/24/17 Unknown Rx AtorvaSTATin [Lipitor] 80 mg PO QHS #30 tablet 10/23/16 01/24/17 Unknown Rx ISOSORBIDE MONOnitrate [Imdur ER] 30 mg PO DAILY #30 tablet 10/23/16 01/24/17 Unknown Rx Metoprolol [Lopressor TAB] 50 mg PO BID #30 tablet 10/23/16 01/24/17 Unknown Rx Pregabalin [Lyrica] 100 mg PO QHS 10/23/16 01/24/17 10/22/16 History FLUoxetine [PROzac] 20 mg PO QDAY 01/24/17 01/24/17 Unknown History Sitagliptin Phosphate [Januvia] 100 mg PO DAILY 01/24/17 01/24/17 Unknown History Active Meds: Active Medications Acetaminophen (Tylenol) 650 mg PO Q4H PRN PRN Reason: Pain MILD(1-3)/Fever >100.5/BARNETT Amlodipine Besylate (Norvasc) 2.5 mg PO QDAY [facility] Last Admin: 01/25/17 10:15 Dose: 2.5 mg Atorvastatin Calcium (Lipitor) 80 mg PO QHS [facility] Bisacodyl (Dulcolax) 10 mg MD QDAY PRN PRN Reason: Constipation unrelieved by MOM Dextrose (D50w (25gm) Vial) 25 gm IV PRN PRN PRN Reason: Hypoglycemia Enoxaparin Sodium (Lovenox) 40 mg SUB-Q QDAY@1000 WING Last Admin: 01/25/17 10:16 Dose: 40 mg Fluoxetine HCl (Prozac) 20 mg PO QDAY [facility] Last Admin: 01/25/17 10:17 Dose: 20 mg Insulin Aspart (Novolog) 0 units SUB-Q ACHS [facility] PRN Reason: Protocol Isosorbide Mononitrate (Imdur) 60 mg PO QDAY [facility] Linagliptin (Tradjenta) 5 mg PO QDAY [facility] Last Admin: 01/25/17 10:16 Dose: 5 mg Magnesium Hydroxide (Milk Of Magnesia) 30 ml PO Q4H PRN PRN Reason: Constipation Metoprolol Tartrate (Lopressor) 50 mg PO BID [facility] Last Admin: 01/25/17 10:15 Dose: 50 mg Morphine Sulfate (Morphine) 2 mg IV Q4H PRN PRN Reason: Pain, Moderate (4-6) Last Admin: 01/25/17 10:17 Dose: 2 mg Ondansetron HCl (Zofran) 4 mg IV Q8H PRN PRN Reason: N/V unrelieved by Reglan Last Admin: 01/25/17 10:14 Dose: 4 mg Pregabalin (Lyrica) 25 mg PO QHS [facility] Pregabalin (Lyrica) 75 mg PO QHS [facility] Ranolazine (Ranexa Er) 500 mg PO BID [facility] Physical Examination Vital Signs Temp Pulse Resp BP Pulse Ox 98.5 F 60 18 110/70 95 01/24/17 18:20 01/24/17 18:20 01/24/17 18:20 01/24/17 18:20 01/24/17 18:20 Results 01/24/17 18:50 01/24/17 18:45 Lipids 01/24/17 Range/Units 18:45 Triglycerides 164 H (2-149) mg/dL Cholesterol 155 (50-199) mg/dL HDL Cholesterol 45 (40-59) mg/dL Cholesterol/HDL Ratio 3.44 % CBC 01/24/17 Range/Units 18:50 WBC 7.1 (4.5-11.0) K/mm3 RBC 5.47 H (3.65-5.03) M/mm3 Hgb 16.9 H (11.8-15.2) gm/dl Hct 50.7 H (35.5-45.6) % Plt Count 199 (140-440) K/mm3 Lymph # 1.4 (1.2-5.4) K/mm3 Blount # 0.6 (0.0-0.8) K/mm3 Eos # 0.2 (0.0-0.4) K/mm3 Baso # 0.1 (0.0-0.1) K/mm3 Comprehensive Metabolic Panel 01/24/17 Range/Units 18:45 Sodium 139 (137-145) mmol/L Potassium 3.9 (3.6-5.0) mmol/L Chloride 96.8 L (98-107) mmol/L Carbon Dioxide 29 (22-30) mmol/L BUN 17 (9-20) mg/dL Creatinine 0.9 (0.8-1.5) mg/dL Glucose 101 H (75-100) mg/dL Calcium 9.4 (8.4-10.2) mg/dL Assessment and Plan Detailed Cardiology consult dictated.
[2017-01-25] MEDS: RANEXA ER PO SCH ×2 (12:46→22:28)
--- NOTE | 2017-01-25 16:03 | Event Note ---
Date: 01/25/17 pt seen and examined, will cont current Mx and plan as dictated in H and P.
[2017-01-25] MEDS ORDERED: NON-FORMULARY (Pregabalin [Lyrica] 100 MG) PO SCH (22:00)
[2017-01-25] MEDS: LYRICA PO SCH ×2 (22:28)
--- NOTE | 2017-01-26 00:37 | Consultation ---
REFERRING PHYSICIAN: Kristi Vergara MD TIME SEEN: 11:26 a.m. HISTORY OF PRESENT ILLNESS: A 56-year-old pleasant white gentleman with history of multiple medical problems as hypertension, hyperlipidemia, type 2 diabetes mellitus, old myocardial infarction, history of stents in the past, and also history of CABG surgery 2 years ago. Also, history of multiple CVAs in the past (a total of 4), most recent one 5 months ago, was admitted with severe left parasternal pressure-like chest pains (on a scale of 0-10, he rates it as 8). While he was resting (apparently, he was playing cards), radiated into the left shoulder and neck region, not associated with any nausea, vomiting, or sweating. He took nitroglycerin tablets without any relief. Subsequently, he was evaluated in the Emergency Room. His serum troponins were minimally increased to 0.016, 0.023, and 0.033, which are nonspecific. No evidence of acute myocardial injury or infarction. His proBNP is 198. He is also known to have disease in the carotid arteries and further details are not known at this time. As per him, he has recovered from his CVAs and he is able to walk without any support, but he stumbles on the left side. PAST MEDICAL HISTORY: History of multiple medical problems as described above, history of bronchial asthma, DJD. His most recent cardiac catheterization was on 06/06/2016, which revealed normal left ventricular systolic function, totally occluded LAD in the proximal portion, and patent BROWN graft to LAD, totally occluded obtuse marginal branch proximally. The LAD had severe diffuse disease after the anastomosis of BROWN. He had a Lexiscan nuclear stress scan on 10/22/2016, which was negative and also, had an echocardiogram on 10/21/2016, which revealed normal systolic function with EF around 60-65%, [id number] concentric left ventricular hypertrophy and mild mitral regurgitation. He had a CAT scan of the head in the past, which revealed evidence of old infarction. He also had a cervical neck fusion surgery in the past. FAMILY HISTORY: As per him, his mother had myocardial infarction at the age of 45. Further details are not known at this time. SOCIAL HISTORY: He is not a smoker, not an alcoholic. No history of drug abuse. ALLERGIES: TETRACYCLINE, he develops skin rashes. MEDICATIONS: Amlodipine 2.5 mg p.o. daily, atorvastatin 80 mg p.o. daily, Lovenox 40 mg subcutaneous daily, fluoxetine 20 mg p.o. daily, insulin, Imdur 30 mg p.o. daily, metoprolol tartrate 50 mg p.o. b.i.d., Lyrica 75 mg p.o. at bedtime daily. In the Emergency Room, he received intravenous morphine and aspirin. REVIEW OF SYSTEMS: CARDIOVASCULAR SYSTEM: As described in the history. NEUROLOGICAL: As described in the history. PULMONARY: As described in the history. METABOLISM AND ENDOCRINOLOGY: As described in the history. BONE AND JOINTS: As described in the history. Review of rest of the 10 systems is negative. PHYSICAL EXAMINATION: GENERAL: A 56-year-old pleasant white gentleman free from chest pain at this time. VITAL SIGNS: Pulse 64 per minute regular, blood pressure 133/76 mmHg, respirations 16 per minute. NEUROLOGIC: He is alert and oriented x 3. HEENT: Negative. NECK: Supple, no JVD, no bruit, no thyromegaly. CHEST: Healed CABG scar present. HEART: PMI shifted slightly laterally and is forcible in nature, no palpable thrills. Auscultation of heart reveals S1, S2 heard. Heart sounds are rather muffled. No murmur or rub is appreciated. No gallop. EXTREMITIES: Peripheral pulses felt. No edema. LUNGS: Bilateral air entry good and equal. No bronchial breathing, no wheezing. ABDOMEN: Soft, benign. No organomegaly. SKIN: Negative. BONE AND JOINTS: Negative. NEUROLOGICAL: He has mild left hemiparesis. LABORATORY DATA: Troponins as described in the history. Potassium, BUN and creatinine within normal limits. HDL is 45, LDL is 78, triglycerides 164. Chest x-ray one-view (AP view) negative. EKG, normal sinus rhythm, first-degree AV block, left atrial enlargement, nonspecific interventricular conduction delay. IMPRESSION: 1. Recurrent angina with minimal increase in troponins (nonspecific-no definite evidence of myocardial injury or infarction.) 2. History of old myocardial infarction. 3. Known history of stents in the past and also history of coronary artery bypass grafting surgery two years ago. 4. History of multiple cerebrovascular accidents in the past. 5. Multiple other medical problems as hypertension, hyperlipidemia, and type 2 diabetes mellitus. RECOMMENDATIONS: The patient had a negative Anna nuclear stress scan done 3 months ago. Maximizing medical therapy is recommended. I would increase his isosorbide mononitrate dose to 60 mg p.o. daily. I have also added Ranexa 500 mg p.o. b.i.d. to the current medication regimen. The patient can be allowed to ambulate this afternoon. Thank you again, we will follow. JOB# [id number] MURALI/ALVIN
[2017-01-26 06:19] LABS: Basophils % (Auto) 0.5 % (0.0-1.8); Eosinophils % (Auto) 4.2 % (0.0-4.3); Hematocrit 46.7 % (35.5-45.6); Mean Corpuscular HGB Conc 34 % (32-34); Mean Corpuscular Hemoglobin 32 pg (28-32); Mean Corpuscular Volume 94 fl (84-94); Platelet Count 162 K/mm3 (140-440); Red Blood Count 4.99 M/mm3 (3.65-5.03); Red Cell Distribution Width 13.6 % (13.2-15.2); White Blood Count 7.5 K/mm3 (4.5-11.0)
[2017-01-26 06:37] LABS: Anion Gap 15 mmol/L; BUN/Creatinine Ratio 26; Blood Urea Nitrogen 31 mg/dL (9-20); Calcium 8.5 mg/dL (8.4-10.2); Carbon Dioxide 30 mmol/L (22-30); Chloride 96.9 mmol/L (98-107); Glucose 180 mg/dL (75-100); Potassium 4.5 mmol/L (3.6-5.0); Sodium 137 mmol/L (137-145)
[2017-01-26] MEDS: NOVOLOG SUB-Q SCH ×4 (10:04→22:26)
[2017-01-26] MEDS: TRADJENTA PO SCH (10:06)
[2017-01-26] MEDS: RANEXA ER PO SCH ×2 (10:06→22:24)
[2017-01-26] MEDS: NORVASC PO SCH (10:06)
[2017-01-26] MEDS: LOVENOX SUB-Q SCH (10:08)
[2017-01-26] MEDS: IMDUR PO SCH (10:08)
[2017-01-26] MEDS: LOPRESSOR PO SCH ×2 (10:09→22:25)
[2017-01-26] MEDS: PROzac PO SCH (10:09)
--- NOTE | 2017-01-26 13:21 | Progress Note ---
Assessment and Plan Assessment: Recurrent chest pain - AMI ruled out Minimal troponin elevation - nonspecific H/o CAD s/p [place], PCI and CABG H/o multiple CVAs HTN HLP DM Plan: Given recent negative stress test and echo with NAF, cont current anti-ischemic regimen. Currently stable cardiac status. Pt may discharge home from cardiology standpoint. Recommend pt follow up with Donna Stuart NP, within 1-2 weeks of hospital discharge ([phone]). The patient has been seen in conjunction with Dr. Hester who agrees with the assessment and plan of care. Subjective Date of service: 01/26/17 Principal diagnosis: recurrent chest pain Interval history: pt resting comfortably, NAD. VSS. Objective Last Vital Signs Temp 97.3 F L 01/26/17 08:12 Pulse 61 01/26/17 08:13 Resp 18 01/26/17 08:12 BP 98/51 01/26/17 10:09 Pulse Ox 93 01/26/17 08:13 - Physical Examination General: No Apparent Distress HEENT: Positive: PERRL, Normocephaly, Mucus Membranes Moist Neck: Positive: neck supple, trachea midline Cardiac: Positive: Reg Rate and Rhythm, S1/S2 Lungs: Positive: clear to auscultation Neuro: Positive: Grossly Intact Abdomen: Positive: Soft. Negative: Tender Skin: Positive: Clear. Negative: Rash Musculoskeletal: No Fluid Collection, No Pain, Normal Range of Motion Extremities: Absent: edema - Labs and Meds CBC 01/26/17 Range/Units 04:43 WBC 7.5 (4.5-11.0) K/mm3 RBC 4.99 (3.65-5.03) M/mm3 Hgb 16.0 H (11.8-15.2) gm/dl Hct 46.7 H (35.5-45.6) % Plt Count 162 (140-440) K/mm3 Lymph # 2.3 (1.2-5.4) K/mm3 Nance # 0.6 (0.0-0.8) K/mm3 Eos # 0.3 (0.0-0.4) K/mm3 Baso # 0.0 (0.0-0.1) K/mm3 Comprehensive Metabolic Panel 01/26/17 Range/Units 04:43 Sodium 137 (137-145) mmol/L Potassium 4.5 (3.6-5.0) mmol/L Chloride 96.9 L (98-107) mmol/L Carbon Dioxide 30 (22-30) mmol/L BUN 31 H (9-20) mg/dL Creatinine 1.2 (0.8-1.5) mg/dL Glucose 180 H (75-100) mg/dL Calcium 8.5 (8.4-10.2) mg/dL - Imaging and Cardiology EKG: image reviewed - Telemetry EKG Rhythm: Sinus Rhythm
--- NOTE | 2017-01-26 15:53 | Progress Note ---
Assessment and Plan Chest pain, rulled out [place] by negative stress test - no further intervention per cardiology, medical Mx for now Coronary artery disease - H/o CAD s/p [place], PCI and CABG - cont BB, statin Hypertension - stable with current meds Diabetes - ADa diet, cont home regimen Seizure - cont AED History of CVA - cont aspirin, statin DVT px - cont lovenox Physical debility - need ALISE Neck pain - Ct neck ordered Physical exam: General: No Apparent Distress HEENT: Positive: PERRL, Normocephaly, Mucus Membranes Moist Neck: Positive: neck supple, trachea midline Cardiac: Positive: Reg Rate and Rhythm, S1/S2 Lungs: Positive: clear to auscultation Neuro: Positive: Grossly Intact Abdomen: Positive: Soft. Negative: Tender Skin: Positive: Clear. Negative: Rash Musculoskeletal: No Fluid Collection, No Pain, Normal Range of Motion Extremities: Absent: edema Subjective Date of service: 01/26/17 Principal diagnosis: recurrent chest pain Interval history: Pt seen and examined cont to c/o left sided neck pain and left shoulder pain PT recommended HH with 24/7 assistance or ALISE Objective - Constitutional Vitals: Vital Signs - 12hr 01/26/17 01/26/17 01/26/17 04:40 07:33 08:12 Temperature 98.4 F 97.3 F L Pulse Rate 61 61 Respiratory 20 18 Rate Blood Pressure 125/62 98/51 O2 Sat by Pulse 88 95 93 Oximetry 01/26/17 01/26/17 01/26/17 08:13 10:06 10:08 Temperature Pulse Rate 61 Respiratory Rate Blood Pressure 98/51 98/51 98/51 O2 Sat by Pulse 93 Oximetry 01/26/17 10:09 Temperature Pulse Rate Respiratory Rate Blood Pressure 98/51 O2 Sat by Pulse Oximetry - Labs CBC & Chem 7: 01/26/17 04:43 01/26/17 04:43 Labs: Abnormal lab results 01/25/17 01/25/17 01/26/17 Range/Units 17:55 21:19 04:43 Hgb 16.0 H (11.8-15.2) gm/dl Hct 46.7 H (35.5-45.6) % Tucker % (Auto) 8.2 H (0.0-7.3) % Chloride (98-107) mmol/L BUN (9-20) mg/dL Glucose (75-100) mg/dL POC Glucose 332 H 126 H (70-105) 01/26/17 01/26/17 01/26/17 Range/Units 04:43 08:23 11:46 Hgb (11.8-15.2) gm/dl Hct (35.5-45.6) % Tucker % (Auto) (0.0-7.3) % Chloride 96.9 L (98-107) mmol/L BUN 31 H (9-20) mg/dL Glucose 180 H (75-100) mg/dL POC Glucose 189 H 271 H (70-105)
[2017-01-26] MEDS: MORPHINE IV PRN ×2 (18:23→23:37)
--- NOTE | 2017-01-26 18:23 | Cat Scan Report ---
FINAL REPORT PROCEDURE: CT NECK WO CON TECHNIQUE: Computerized tomography of the soft tissue neck was performed without contrast material. This study is performed without intravascular contrast material and its sensitivity for pathology, including neoplasms, inflammation, abscess, free fluid, thrombosis, and arterial dissection, is reduced compared with a contrast enhanced study. HISTORY: neck pain COMPARISON: No prior studies are available for comparison. FINDINGS: The parotid glands and submandibular glands are unremarkable. Thyroid gland showed no focal abnormalities. The larynx is unremarkable. The epiglottis showed no abnormalities. The prevertebral soft tissues appear normal. Parapharyngeal spaces are symmetric. Nonspecific subcentimeter lymph nodes are scattered in the right and left side of the neck. These do not appear to be pathologically enlarged. There is moderate mucosal thickening in the left side of the sphenoid sinus. There may be a small amount of fluid present as well. Paranasal sinuses otherwise are clear. Incidental note is made of postsurgical changes in the cervical spine from prior fusion procedure. Flowing anterior osteophytic spurs cross multiple intervertebral disc spaces inferiorly into the upper thoracic spine suggesting DISH. Sternotomy wires are visualized. IMPRESSION: No acute abnormalities are seen in the soft tissues of the neck. Sphenoid sinus disease as described. I cannot exclude acute sinusitis. Prior thoracotomy. Postsurgical changes cervical spine and evidence of DISH.. This appears similar to the previous CT scan of the cervical spine 06/05/2015
[2017-01-26] MEDS: LYRICA PO SCH ×2 (22:24)
[2017-01-27] MEDS: NOVOLOG SUB-Q SCH ×4 (08:00→22:11)
[2017-01-27] MEDS: PROzac PO SCH (10:29)
[2017-01-27] MEDS: RANEXA ER PO SCH ×2 (10:29→22:10)
[2017-01-27] MEDS: NORVASC PO SCH (10:29)
[2017-01-27] MEDS: IMDUR PO SCH (10:29)
[2017-01-27] MEDS: LOPRESSOR PO SCH ×2 (10:30→22:09)
[2017-01-27] MEDS: ZOFRAN IV PRN (10:30)
[2017-01-27] MEDS: TRADJENTA PO SCH (10:30)
[2017-01-27] MEDS: MORPHINE IV PRN ×3 (10:31→22:10)
[2017-01-27] MEDS: LOVENOX SUB-Q SCH (10:33)
[2017-01-27] MEDS: HALFPRIN EC PO SCH (13:12)
--- NOTE | 2017-01-27 14:52 | Progress Note ---
Assessment and Plan Chest pain, rulled out [place] by negative stress test - no further intervention per cardiology, medical Mx for now Coronary artery disease - H/o CAD s/p [place], PCI and CABG - cont BB, statin Hypertension - stable with current meds Diabetes - ADa diet, cont home regimen Seizure - cont AED History of CVA - cont aspirin, statin DVT px - cont lovenox Physical debility - need [facility]ISE Neck pain - Ct neck ordered and no acute findings Disposition: pending on placement Physical exam: General: No Apparent Distress HEENT: Positive: PERRL, Normocephaly, Mucus Membranes Moist Neck: Positive: neck supple, trachea midline Cardiac: Positive: Reg Rate and Rhythm, S1/S2 Lungs: Positive: clear to auscultation Neuro: Positive: Grossly Intact Abdomen: Positive: Soft. Negative: Tender Skin: Positive: Clear. Negative: Rash Musculoskeletal: No Fluid Collection, No Pain, Normal Range of Motion Extremities: Absent: edema Subjective Date of service: 01/27/17 Principal diagnosis: recurrent chest pain Interval history: Pt seen and examined improved left sided neck pain and left shoulder pain PT recommended with 24/7 assistance or [facility] notified Objective - Constitutional Vitals: Vital Signs - 12hr 01/27/17 01/27/17 01/27/17 04:09 10:00 10:29 Temperature 98.1 F Pulse Rate 59 L 62 Respiratory 20 Rate Respiratory 18 Rate [chest] Blood Pressure 124/64 124/64 O2 Sat by Pulse 96 Oximetry 01/27/17 01/27/17 01/27/17 10:30 10:31 13:00 Temperature Pulse Rate 62 57 L Respiratory 18 Rate Respiratory Rate [chest] Blood Pressure 124/64 O2 Sat by Pulse Oximetry - Labs CBC & Chem 7: 01/26/17 04:43 01/26/17 04:43 Labs: Abnormal lab results 01/26/17 01/26/17 01/27/17 Range/Units 16:43 21:58 07:28 POC Glucose 188 H 244 H 157 H (70-105) 01/27/17 Range/Units 11:57 POC Glucose 215 H (70-105)
[2017-01-27] MEDS: LYRICA PO SCH ×2 (22:09)
[2017-01-28] MEDS: NOVOLOG SUB-Q SCH ×2 (08:47→13:15)
[2017-01-28 10:02] VITALS: BP 132/61
[2017-01-28] MEDS: RANEXA ER PO SCH (10:02)
[2017-01-28] MEDS: HALFPRIN EC PO SCH (10:02)
[2017-01-28] MEDS: LOPRESSOR PO SCH (10:02)
[2017-01-28] MEDS: IMDUR PO SCH (10:03)
[2017-01-28] MEDS: LOVENOX SUB-Q SCH (10:03)
[2017-01-28] MEDS: MORPHINE IV PRN (10:03)
[2017-01-28] MEDS: NORVASC PO SCH (10:03)
[2017-01-28] MEDS: PROzac PO SCH (10:04)
[2017-01-28] MEDS: TRADJENTA PO SCH (10:04)
--- NOTE | 2017-01-28 13:12 | Discharge Summary ---
Providers - Providers Date of Admission: 01/25/17 02:27 Date of discharge: 01/28/17 Attending physician: ELIZABETH CAMPO 01/25/17 02:27 Consult to Physician [CONS] Routine Consulting Provider: ALICE LÓPEZ Reason For Exam: Place consult to:: Dr. López Notified:: Anne-Marie GABRIEL Phone number called:: Was contact made?: Yes If yes, spoke with:: Amanda-answering service Time called:: 08:07 01/25/17 16:03 Physical Therapy Evaluation and Treat [CONS] Routine Comment: Reason For Exam: d/c clearance Primary care physician: LISET GONZALEZ Hospitalization Condition: Stable Hospital course: 56-year-old man history of hypertension, diabetes, carotid artery disease, seizure, CVA comes to emergency room with complaints of chest pain located in the epigastric area. He took one nitroglycerin before coming to hospital without any relief in symptoms. He had a cardiac cath in May which showed patent stents. Cardiology was consulted and he was admitted for further evaluation and management. 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, medical Mx for now Coronary artery disease - H/o CAD s/p [place], PCI and CABG - cont BB, statin Hypertension - stable with current meds Diabetes - ADa diet, cont home regimen Seizure - cont AED History of CVA - cont aspirin, statin DVT px - cont lovenox Physical debility - need [facility] or with 24/7 assistance - patient decided to go home with his daughter Neck pain - CT neck ordered and no acute findings - likely due to degenerative disk disease - Pain Mx as needed Physical exam: General: No Apparent Distress HEENT: Positive: PERRL, Normocephaly, Mucus Membranes Moist Neck: Positive: neck supple, trachea midline Cardiac: Positive: Reg Rate and Rhythm, S1/S2 Lungs: Positive: clear to auscultation Neuro: Positive: Grossly Intact Abdomen: Positive: Soft. Negative: Tender Skin: Positive: Clear. Negative: Rash Musculoskeletal: No Fluid Collection, No Pain, Normal Range of Motion Extremities: Absent: edema Disposition: DC/[place]-06 HOME [facility] Time spent for discharge: 32 minutes Core Measure Documentation - Palliative Care Palliative Care/ Comfort Measures: Not Applicable - Core Measures Any of the following diagnoses?: history only Exam - Constitutional Vitals: Temp Pulse Resp BP Pulse Ox 98.3 F 59 L 20 132/61 98 01/28/17 08:17 01/28/17 08:17 01/28/17 08:17 01/28/17 08:17 01/28/17 08:17 Plan Activity: up only with assistance Weight Bearing Status: Non-Weight Bearing Diet: diabetic Follow up with: LISET GONZALEZ MD [Primary Care Provider] - 3-5 Days Prescriptions: RX: Aspirin EC [Aspirin Enteric Coated TAB] 81 mg PO QDAY #30 tablet RX: ISOSORBIDE MONOnitrate [Imdur ER] 60 mg PO QDAY #30 tablet RX: Ranolazine ER [Ranexa ER] 500 mg PO BID #60 tablet
== END 2017-01-28 14:49 | disposition home health service (06) | DRG 303 ==
LOC: ED 18:12 → 4A 01-25 02:27
PROVIDERS: ADMIT Internal Medicine; ATTEND Internal Medicine
DX: I25.110 Atherosclerotic heart disease of native coronary artery with unstable angina pectoris (principal); R56.9 Unspecified convulsions; E11.9 Type 2 diabetes mellitus without complications; I69.354 Hemiplegia and hemiparesis following cerebral infarction affecting left non-dominant side; R07.9 Chest pain, unspecified; I69.328 Other speech and language deficits following cerebral infarction; I25.2 Old myocardial infarction; M19.90 Unspecified osteoarthritis, unspecified site; J45.909 Unspecified asthma, uncomplicated; I50.9 Heart failure, unspecified; I11.0 Hypertensive heart disease with heart failure; G45.1 Carotid artery syndrome (hemispheric); E78.5 Hyperlipidemia, unspecified; Z88.1 Allergy status to other antibiotic agents; Z79.899 Other long term (current) drug therapy; Z95.5 Presence of coronary angioplasty implant and graft; Z95.1 Presence of aortocoronary bypass graft
CPT/HCPCS: 36415; 70490; 71010; 80048; 80061; 82962; 83880; 84484; 85025; 85652; 86140; 93005; 93010; 94760; 96372; 96374; 96375; A9270-GY; G8978-GP; G8979-GP; J1650; J1815; J2270; J2405